=== PATIENT | female | born 1950 | race Caucasian/White ===

== ENCOUNTER 2020-03-03 09:23 | Outpatient (CLI) | payer OTHER, SELFPAY ==
[2020-03-03 09:55] LABS: Hematocrit 37.7 % (35.0-42.0); Hemoglobin 12.3 g/dL (11.7-13.8); Mean Corpuscular HGB Conc 32.6 g/dL (32.0-36.0); Mean Corpuscular Hemoglobin 32.4 pg (27.0-31.0); Mean Corpuscular Volume 99.2 fL (78.0-102.0); Mean Platelet Volume 8.8 fl (9.2-11.8); Platelet Count Result 153 K/mm3 (150-420); Red Cell Distribution Width 13.1 % (11.6-14.4); White Blood Count 3.5 K/mm3 (4.8-10.8)
[2020-03-03 09:56] LABS: Add Urine Microscopic? YES; Appearance Urine Clear (Clear); Bilirubin Urine Negative (Negative); Blood Urine Negative (Negative); Color Urine Yellow (Yellow); Glucose Urine UA Negative (Negative); Ketones Urine Negative (Negative); Leukocyte Esterase Ur Trace (Negative); Nitrate Urine Negative (Negative); Protein Urine Negative (Negative); Specific Grav Ur 1.015 (1.010-1.020); Urobilinogen Urine 0.2 mg/dL (0.2-1.0); pH Urine 5.5 (5.0-8.0)
[2020-03-03 10:00] LABS: RBC Urine 0-2 /hpf (0-2); Squamous Epithelial Cell Urine Rare /hpf (Few); WBC Urine 0-3 /hpf (0-3)
[2020-03-03 10:01] LABS: Bacteria Urine None seen /hpf
[2020-03-03 10:11] LABS: BNP 114 pg/mL (0-100)
[2020-03-03 10:25] LABS: Band Neutrophils Percent 1 % (0-6); Basophils Percent Manual 0 % (0-1); Eosinophils Percent Manual 3 % (1-6); Lymphocytes Absolute Manual 1.82 K/mm3 (1.1-4.5); Lymphocytes Percent Manual 52 % (18-44); Monocytes Absolute Manual 0.35 K/mm3 (0.1-0.90); Monocytes Percent Manual 10 % (3-9); Neutrophils Absolute Manual 1.22 K/mm3 (1.7-7.2); Neutrophils Percent Manual 34 % (46-73); Platelet Estimate Adequate (Adequate); Total Cells Counted 100
[2020-03-03 10:49] LABS: Alanine Aminotransferase 31 U/L (14-59); Albumin Level 3.8 g/dL (3.4-5.0); Alkaline Phosphatase 48 U/L (46-116); Anion Gap 13.3 mmol/L (7-16); Aspartate Amino Transferase 29 U/L (15-37); Bilirubin,Total 0.8 mg/dL (0.00-1.00); Blood Urea Nitrogen 17 mg/dL (7-18); Calcium 8.6 mg/dL (8.5-10.1); Carbon Dioxide 27 mmol/L (21-32); Chloride 105 mmol/L (98-108); Cholesterol 195 mg/dL (0-200); Estimated Glomerular Filt Rate 49; Glucose 110 mg/dL (70-99); HDL Direct 120 mg/dL (40-60); LDL Cholesterol Calculated 59 mg/dL (<130); Osmolality Calculated 294 mOsm/kg (285-295); Potassium 4.3 mmol/L (3.5-5.1); Sodium 141 mmol/L (136-145); Thyroid Stimulating Hormone 1.24 uIU/mL (0.36-3.74); Total Protein 6.7 g/dL (6.4-8.2); Triglycerides 80 mg/dL (0-150)
[2020-03-06 21:00] LABS: Hepatitis C Signal to Cutoff 0.01 ratio (<1.00); Hepatitis C Virus Antibody Nonreactive (Nonreactive)
== END 2020-03-03 09:24 | disposition home or self-care (01) ==
PROVIDERS: PCP Internal Medicine
DX: I42.8 Other cardiomyopathies (principal); E78.5 Hyperlipidemia, unspecified; I25.10 Atherosclerotic heart disease of native coronary artery without angina pectoris; I50.9 Heart failure, unspecified
CPT/HCPCS: 36415; 80053; 80061; 81001; 83880; 84443; 85025

== ENCOUNTER 2021-06-10 07:40 | Outpatient (CLI) | payer OTHER, SELFPAY ==
[2021-06-10 07:58] LABS: Basophils Absolute Auto 0.03 K/mm3 (0.00-0.10); Basophils Percent Auto 0.7 % (0.0-1.0); Eosinophils Percent Auto 2.3 % (1.0-6.0); Hematocrit 37.2 % (35.0-42.0); Hemoglobin 12.1 g/dL (11.7-13.8); Lymphocytes Absolute Auto 2.31 K/mm3 (1.10-4.50); Lymphocytes Percent Auto 54.2 % (18.0-42.0); Mean Corpuscular HGB Conc 32.5 g/dL (32.0-36.0); Mean Corpuscular Hemoglobin 32.9 pg (27.0-31.0); Mean Corpuscular Volume 101.1 fL (78.0-102.0); Mean Platelet Volume 8.5 fl (9.2-11.8); Monocytes Absolute Auto 0.36 K/mm3 (0.10-0.90); Monocytes Percent Auto 8.5 % (2.0-11.0); Neutrophils Absolute Auto 1.5 K/mm3 (1.7-7.2); Neutrophils Percent Auto 34.3 % (50.0-70.0); Platelet Count Result 136 K/mm3 (150-420); Red Blood Count 3.68 M/mm3 (4.20-5.40); Red Cell Distribution Width 13.2 % (11.6-14.4); White Blood Count 4.3 K/mm3 (4.8-10.8)
[2021-06-10 08:06] LABS: Add Urine Microscopic? YES; Appearance Urine Clear (Clear); Bilirubin Urine Negative (Negative); Blood Urine Negative (Negative); Color Urine Light Yellow (Yellow); Glucose Urine UA Negative (Negative); Ketones Urine Negative (Negative); Leukocyte Esterase Ur 1+ (Negative); Nitrate Urine Negative (Negative); Protein Urine Negative (Negative); Specific Grav Ur 1.015 (1.010-1.020); Urobilinogen Urine 0.2 mg/dL (0.2-1.0); pH Urine 5.5 (5.0-8.0)
[2021-06-10 08:36] LABS: Bacteria Urine Trace /hpf; RBC Urine None seen /hpf (0-2); Squamous Epithelial Cell Urine Rare /hpf (Few); WBC Urine 0-3 /hpf (0-3)
[2021-06-10 09:15] LABS: Alanine Aminotransferase 28 U/L (14-59); Alkaline Phosphatase 43 U/L (46-116); Anion Gap 11 mmol/L (8-16); Aspartate Amino Transferase 20 U/L (15-37); Bilirubin,Total 0.7 mg/dL (0.00-1.00); Blood Urea Nitrogen 16 mg/dL (7-18); Carbon Dioxide 27 mmol/L (21-32); Chloride 108 mmol/L (98-108); Cholesterol 183 mg/dL (0-200); Estimated Glomerular Filt Rate > 60; Glucose 97 mg/dL (70-99); HDL Direct 92 mg/dL (40-60); LDL Cholesterol Calculated 72 mg/dL (<130); Osmolality Calculated 303 mOsm/kg (285-295); Potassium 4.1 mmol/L (3.5-5.1); Sodium 146 mmol/L (136-145); Thyroid Stimulating Hormone Reflex 1.21 u/IU/mL (0.36-3.74); Total Protein 6.5 g/dL (6.4-8.2); Triglycerides 97 mg/dL (0-150)
== END 2021-06-10 07:41 | disposition home or self-care (01) ==
PROVIDERS: PCP Internal Medicine
DX: Z00.00 Encounter for general adult medical examination without abnormal findings (principal); I25.10 Atherosclerotic heart disease of native coronary artery without angina pectoris; I25.5 Ischemic cardiomyopathy; R63.5 Abnormal weight gain
CPT/HCPCS: 36415; 80053; 80061; 81001; 84443; 85025

== ENCOUNTER 2022-06-21 08:04 | Outpatient (CLI) | payer OTHER, SELFPAY ==
[2022-06-21 08:28] LABS: Hematocrit 40.1 % (35.0-42.0); Hemoglobin 12.8 g/dL (11.7-13.8); Mean Corpuscular HGB Conc 31.9 g/dL (32.0-36.0); Mean Corpuscular Hemoglobin 31.5 pg (27.0-31.0); Mean Corpuscular Volume 98.8 fL (78.0-102.0); Mean Platelet Volume 8.8 fl (9.2-11.8); Platelet Count Result 214 K/mm3 (150-420); Red Blood Count 4.06 M/mm3 (4.20-5.40); Red Cell Distribution Width 12.9 % (11.6-14.4); White Blood Count 3.5 K/mm3 (4.8-10.8)
[2022-06-21 08:36] LABS: Add Urine Microscopic? YES; Appearance Urine Clear (Clear); Bilirubin Urine Negative (Negative); Blood Urine Negative (Negative); Color Urine Yellow (Yellow); Glucose Urine UA 3+ (Negative); Ketones Urine Negative (Negative); Leukocyte Esterase Ur Negative (Negative); Nitrate Urine Negative (Negative); Protein Urine Negative (Negative); Urobilinogen Urine 0.2 mg/dL (0.2-1.0)
[2022-06-21 08:44] LABS: Bacteria Urine None seen /hpf; RBC Urine None seen /hpf (0-2); Squamous Epithelial Cell Urine Occasional /hpf (Few); WBC Urine None seen /hpf (0-3)
[2022-06-21 08:45] LABS: Band Neutrophils Percent 0 % (0-6); Eosinophils Percent Manual 3 % (1-6); Lymphocytes Absolute Manual 1.85 K/mm3 (1.1-4.5); Lymphocytes Percent Manual 53 % (18-44); Monocytes Percent Manual 3 % (3-9); Neutrophils Absolute Manual 1.43 K/mm3 (1.7-7.2); Neutrophils Percent Manual 41 % (46-73); Platelet Estimate Adequate (Adequate); Schistocytes None Seen (NORMAL); Total Cells Counted 100
[2022-06-21 09:16] LABS: Alanine Aminotransferase 26 U/L (14-59); Albumin Level 3.8 g/dL (3.4-5.0); Alkaline Phosphatase 53 U/L (46-116); Anion Gap 7 mmol/L (8-16); Aspartate Amino Transferase 19 U/L (15-37); Bilirubin,Total 0.8 mg/dL (0.00-1.00); Blood Urea Nitrogen 17 mg/dL (7-18); Calcium 8.9 mg/dL (8.5-10.1); Carbon Dioxide 28 mmol/L (21-32); Chloride 109 mmol/L (98-108); Cholesterol 197 mg/dL (0-200); Estimated Glomerular Filt Rate 57; Glucose 102 mg/dL (70-99); HDL Direct 75 mg/dL (40-60); LDL Cholesterol Calculated 95 mg/dL (<130); NT Pro B Type Natriuretic Pept 453 pg/mL (0-125); Osmolality Calculated 299 mOsm/kg (285-295); Potassium 4.5 mmol/L (3.5-5.1); Sodium 144 mmol/L (136-145); Thyroid Stimulating Hormone 1.77 uIU/mL (0.36-3.74); Total Protein 6.8 g/dL (6.4-8.2); Triglycerides 133 mg/dL (0-150)
== END 2022-06-21 08:05 | disposition home or self-care (01) ==
PROVIDERS: PCP Internal Medicine
DX: D72.820 Lymphocytosis (symptomatic) (principal); I42.9 Cardiomyopathy, unspecified; I25.10 Atherosclerotic heart disease of native coronary artery without angina pectoris; M81.0 Age-related osteoporosis without current pathological fracture
CPT/HCPCS: 36415; 80053; 80061; 81001; 83880; 84443; 85025; 88184; 88185; 88189

== ENCOUNTER 2022-07-17 10:03 | Emergency (ER) | payer OTHER, SELFPAY ==
--- NOTE | 2022-07-17 10:36 | ED.NECK ---
HPI - Neck Pain/Injury General Chief Complaint: Neck Pain/Injury Stated Complaint: stiffness and pain in back of neck and ear right s Time Seen by Provider: 07/17/22 10:36 Source: patient and RN notes reviewed Mode of arrival: ambulatory Limitations: no limitations History of Present Illness HPI Narrative: patient states that she woke up with the stiff neck couple of days ago. She hoped that it would just go when its own. She only has tried some Tylenol aspirin which has not helped. MD complaint: neck pain Onset (ago): day(s) (2) Place: home Severity: moderate Quality: dull, aching and spasming Duration: intermittent Relieving factors: remaining still Exacerbating factors: movement of neck Associated symptoms: none Treatments prior to arrival: none Related Data Home Medications Medication Instructions Recorded Confirmed ascorbic acid (vitamin C) 500 mg 500 mg PO DAILY 07/17/22 07/17/22 tablet (Vitamin C) aspirin 81 mg tablet,delayed 81 mg PO DAILY 07/17/22 07/17/22 release calcium carbonate 600 mg-vitamin 2 tablet PO DAILY 07/17/22 07/17/22 D3 20 mcg (800 unit) chewable tablet (Caltrate 600 plus D) carvedilol 25 mg tablet 25 mg PO BID 07/17/22 07/17/22 clopidogrel 75 mg tablet 75 mg PO DAILY 07/17/22 07/17/22 empagliflozin 10 mg tablet 10 mg PO DAILY 07/17/22 07/17/22 (Jardiance) ferrous sulfate 325 mg (65 mg 325 mg PO DAILY 07/17/22 07/17/22 iron) tablet folic acid-vit B6-vit B12 2.5 1 tablet PO DAILY 07/17/22 07/17/22 mg-25 mg-1 mg tablet (Folbee) omega-3 fatty acids-fish oil 684 2 cap PO BID 07/17/22 07/17/22 mg-1,200 mg capsule,delayed release rosuvastatin 5 mg tablet 5 mg PO HS 07/17/22 07/17/22 sacubitril 97 mg-valsartan 103 mg 1 tablet PO BID 07/17/22 07/17/22 tablet (Entresto) sertraline 50 mg tablet 50 mg PO DAILY 07/17/22 07/17/22 vitamin E 400 unit tablet 400 unit PO DAILY 07/17/22 07/17/22 Allergies Allergy/AdvReac Type Severity Reaction Status Date / Time oxycodone Allergy Hallucinati Verified 07/17/22 10:46 ng Review of Systems Review of Systems: All systems reviewed & are unremarkable except as noted in HPI and below PMFSH Past Medical History Medical History (Updated 07/17/22 @ 11:32 by Feliciano Pedraza MD) Cardiac defibrillator in place Congestive heart failure Coronary artery disease Depression Diabetes type 2, controlled Hyperlipidemia Hypertension Surgical History Surgical History (Updated 07/17/22 @ 11:30 by Feliciano Pedraza MD) H/O heart artery stent H/O right knee surgery History of hip surgery Social History Social History (Updated 07/17/22 @ 11:31 by Feliciano Pedraza MD) Smoking status: Former smoker Exam Const: General: healthy appearing, no acute distress and alert Nutritional Appearance: well nourished Orientation/consciousness: patient oriented x3 Limitations: no limitations HENMT: Head: normal to inspection Ears: external ears normal Eyes: Conjunctivae: conjunctivae normal Pupils: Equal, round and reactive pupils present EOM: EOMs intact bilaterally Neck: Neck: normal visual inspection Resp: Effort & Inspection: normal respiratory effort Auscultation: clear to auscultation bilaterally Cardio: Rate: regular rate Rhythm: regular rhythm GI: GI Palp: Yes Soft to palpation and No Tenderness to palpation present (GI) Auscultation: normal bowel sounds Back/Spine/Pelvis: Cervical Spine: cervical muscular tenderness ( on the right in the area of C3-4 5), pain with cervical ROM ( Flexion to the right, rotation to the right) and No Cervical spine tenderness Thoracic/Lumbar Spine: thoraco-lumbar ROM normal Skin: General skin exam: normal color Rashes: no rashes Neuro: General: patient oriented x3, moves all extremities and CN's II-XI intact bilaterally Speech: normal speech Gait exam (Neuro): Normal gait present Extrem: General: normal to inspection and no clubbing, cyanosis or edema Psych: Mental Status: mental s
[2022-07-17 10:37] VITALS: BP 148/93; PULSE 96; RESP 18; TEMP 36.3; O2SAT 98
[2022-07-17] MEDS: KETOROLAC 30 MG/ML VIAL (*BKC) IM (11:05)
--- NOTE | 2022-07-17 11:14 | PC.NURSE ---
On 07/17/22, the student, [tyson partida ], provided care and completed [facility] documentation on this patient. I have reviewed the student's documentation and agree with the findings.
[2022-07-17 11:26] VITALS: BP 140/78; PULSE 79; RESP 20; TEMP 36.7; O2SAT 99
== END 2022-07-17 11:25 | disposition home or self-care (01) ==
PROVIDERS: Emergency Provider Emergency Medicine; PCP Internal Medicine
DX: S16.1XXA Strain of muscle, fascia and tendon at neck level, initial encounter (principal)
CPT/HCPCS: 96372; 99283; J1885

== ENCOUNTER 2022-10-05 08:33 | Outpatient (CLI) | payer OTHER, SELFPAY ==
--- NOTE | ~2022-10-05 | CT_ITS ---
EXAMINATION: CT chest abdomen pelvis w con DATE: 10/05/2022 10:50 INDICATION: Leukopenia. TECHNIQUE: Computed tomography (CT) of the chest, abdomen, and pelvis was performed with 100 mL Omnip aque 350 intravenous contrast. Automated exposure control and iterative reconstruction technique were employed. The dose-length product was 641.57 mGy-cm. COMPARISON: None FINDINGS: CHEST CT: There is mild atelectasis bilaterally. No pleural effusion. There is left atrial and left ventricular enlargement of the heart. 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 There is a left chest pacer with lead in right ventricle. There are coronary artery calcifications. No pericardial effusion. There is moderate thoracic spondylosis. ABDOMEN/PELVIS CT: There is a 5 mm cyst in the liver. The gallbladder is distended, likely secondary to fasting. The spl een, pancreas, and adrenal glands are normal. There are cysts in the kidneys measuring up to 10.5 cm on the left. There are 2 stones in right kidney with the larger measuring 8 mm. There is a 9 mm stone in left kidney. There is diverticulosis of the colon without evidence of diverticulitis. There are n o dilated loops of bowel. The appendix is normal. There are no pathologically enlarged lymph nodes. T here is no free intraperitoneal fluid. There is a total right hip arthroplasty. There is lumbar levos coliosis and severe spondylosis. IMPRESSION: 1. 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 2. Bilateral nonobstructing kidney stones. Reviewed, dictated and finalized at location A. ION ATTENDANT
[2022-10-05 11:09] LABS: Basophils Absolute Auto 0.04 K/mm3 (0.00-0.10); Basophils Percent Auto 0.6 % (0.0-1.0); Eosinophils Absolute Auto 0.12 K/mm3 (0.02-0.50); Eosinophils Percent Auto 1.8 % (1.0-6.0); Hematocrit 42.3 % (35.0-42.0); Hemoglobin 13.1 g/dL (11.7-13.8); Immature Granulocyte Absolute 0.01 K/mm3 (0.00-0.00); Immature Granulocyte Percent A 0.2 % (0.0-0.0); Lymphocytes Absolute Auto 1.73 K/mm3 (1.10-4.50); Lymphocytes Percent Auto 26.5 % (18.0-42.0); Mean Corpuscular Hemoglobin 30.2 pg (27.0-31.0); Mean Corpuscular Volume 97.5 fL (78.0-102.0); Mean Platelet Volume 9.2 fl (9.2-11.8); Monocytes Absolute Auto 0.66 K/mm3 (0.10-0.90); Monocytes Percent Auto 10.1 % (2.0-11.0); Neutrophils Percent Auto 60.8 % (50.0-70.0); Platelet Count Result 227 K/mm3 (150-420); Red Blood Count 4.34 M/mm3 (4.20-5.40); Red Cell Distribution Width 13.3 % (11.6-14.4); White Blood Count 6.5 K/mm3 (4.8-10.8)
[2022-10-05 11:42] LABS: Estimated Glomerular Filt Rate 54
[2022-10-06 17:12] LABS: Alanine Aminotransferase 33 U/L (14-59); Albumin Level 3.8 g/dL (3.4-5.0); Alkaline Phosphatase 57 U/L (46-116); Anion Gap 9 mmol/L (8-16); Aspartate Amino Transferase 21 U/L (15-37); Bilirubin,Total 0.5 mg/dL (0.00-1.00); Blood Urea Nitrogen 24 mg/dL (7-18); Calcium 8.6 mg/dL (8.5-10.1); Carbon Dioxide 26 mmol/L (21-32); Chloride 108 mmol/L (98-108); Glucose 84 mg/dL (70-99); Osmolality Calculated 299 mOsm/kg (285-295); Potassium 4.3 mmol/L (3.5-5.1); Sodium 143 mmol/L (136-145)
== END 2022-10-05 08:34 | disposition home or self-care (01) ==
LOC: CHSIMG 08:34
PROVIDERS: PCP Internal Medicine; Visit Provider Internal Medicine Hematology & Oncology
DX: D72.820 Lymphocytosis (symptomatic) (principal); I25.2 Old myocardial infarction; N20.0 Calculus of kidney
CPT/HCPCS: 36415; 71260; 74177; 80053; 85025; Q9967

== ENCOUNTER 2023-05-17 08:23 | Outpatient (CLI) | payer OTHER, SELFPAY ==
[2023-05-17 08:48] LABS: Appearance Urine Clear (Clear); Basophils Absolute Auto 0.04 K/mm3 (0.00-0.10); Basophils Percent Auto 0.9 % (0.0-1.0); Bilirubin Urine Negative (Negative); Blood Urine Negative (Negative); Color Urine Light Yellow (Yellow); Eosinophils Absolute Auto 0.09 K/mm3 (0.02-0.50); Eosinophils Percent Auto 2.1 % (1.0-6.0); Glucose Urine UA 2+ (Negative); Hematocrit 44.7 % (35.0-42.0); Hemoglobin 14.1 g/dL (11.7-13.8); Ketones Urine Negative (Negative); Leukocyte Esterase Ur Negative (Negative); Lymphocytes Absolute Auto 1.78 K/mm3 (1.10-4.50); Lymphocytes Percent Auto 42.2 % (18.0-42.0); Mean Corpuscular HGB Conc 31.5 g/dL (32.0-36.0); Mean Corpuscular Hemoglobin 29.9 pg (27.0-31.0); Mean Corpuscular Volume 94.9 fL (78.0-102.0); Mean Platelet Volume 8.9 fl (9.2-11.8); Monocytes Absolute Auto 0.43 K/mm3 (0.10-0.90); Monocytes Percent Auto 10.2 % (2.0-11.0); Neutrophils Absolute Auto 1.9 K/mm3 (1.7-7.2); Neutrophils Percent Auto 44.6 % (50.0-70.0); Nitrate Urine Negative (Negative); Platelet Count Result 253 K/mm3 (150-420); Protein Urine Negative (Negative); Red Blood Count 4.71 M/mm3 (4.20-5.40); Red Cell Distribution Width 13.7 % (11.6-14.4); Urobilinogen Urine 0.2 mg/dL (0.2-1.0); White Blood Count 4.2 K/mm3 (4.8-10.8)
[2023-05-17 08:52] LABS: Add Urine Microscopic? YES; Bacteria Urine Trace /hpf; RBC Urine None seen /hpf (0-2); Squamous Epithelial Cell Urine Moderate /hpf (Few); WBC Urine None seen /hpf (0-3)
[2023-05-17 09:23] LABS: Alanine Aminotransferase 26 U/L (14-59); Albumin Level 3.8 g/dL (3.4-5.0); Alkaline Phosphatase 46 U/L (46-116); Anion Gap 10 mmol/L (8-16); Aspartate Amino Transferase 29 U/L (15-37); Bilirubin,Total 0.8 mg/dL (0.00-1.00); Blood Urea Nitrogen 17 mg/dL (7-18); Calcium 9.5 mg/dL (8.5-10.1); Carbon Dioxide 28 mmol/L (21-32); Chloride 107 mmol/L (98-108); Cholesterol 187 mg/dL (0-200); Estimated Glomerular Filt Rate 57; Glucose 105 mg/dL (70-99); HDL Direct 65 mg/dL (40-60); LDL Cholesterol Calculated 90 mg/dL (<130); NT Pro B Type Natriuretic Pept 317 pg/mL (0-125); Osmolality Calculated 301 mOsm/kg (285-295); Potassium 4.5 mmol/L (3.5-5.1); Sodium 145 mmol/L (136-145); Thyroid Stimulating Hormone 2.28 uIU/mL (0.36-3.74); Total Protein 6.9 g/dL (6.4-8.2); Triglycerides 158 mg/dL (0-150)
== END 2023-05-17 08:24 | disposition home or self-care (01) ==
LOC: CHSLAB 08:30
PROVIDERS: PCP Internal Medicine
DX: I25.5 Ischemic cardiomyopathy (principal); I25.10 Atherosclerotic heart disease of native coronary artery without angina pectoris; M81.0 Age-related osteoporosis without current pathological fracture
CPT/HCPCS: 36415; 80053; 80061; 81001; 83880; 84443; 85025

== ENCOUNTER 2023-08-24 08:42 | Outpatient (CLI) | payer OTHER, SELFPAY ==
[2023-08-24 09:11] LABS: Basophils Absolute Auto 0.03 K/mm3 (0.00-0.10); Basophils Percent Auto 0.7 % (0.0-1.0); Eosinophils Absolute Auto 0.12 K/mm3 (0.02-0.50); Eosinophils Percent Auto 2.9 % (1.0-6.0); Hematocrit 41.7 % (35.0-42.0); Hemoglobin 13.2 g/dL (11.7-13.8); Immature Granulocyte Absolute 0.01 K/mm3 (0.00-0.00); Immature Granulocyte Percent A 0.2 % (0.0-0.0); Lymphocytes Absolute Auto 1.79 K/mm3 (1.10-4.50); Mean Corpuscular HGB Conc 31.7 g/dL (32.0-36.0); Mean Corpuscular Hemoglobin 30.4 pg (27.0-31.0); Mean Corpuscular Volume 96.1 fL (78.0-102.0); Mean Platelet Volume 9.1 fl (9.2-11.8); Monocytes Absolute Auto 0.43 K/mm3 (0.10-0.90); Monocytes Percent Auto 10.6 % (2.0-11.0); Neutrophils Absolute Auto 1.7 K/mm3 (1.7-7.2); Neutrophils Percent Auto 41.6 % (50.0-70.0); Platelet Count Result 212 K/mm3 (150-420); Red Blood Count 4.34 M/mm3 (4.20-5.40); White Blood Count 4.1 K/mm3 (4.8-10.8)
[2023-08-24 10:06] LABS: Alanine Aminotransferase 40 U/L (14-59); Albumin Level 3.7 g/dL (3.4-5.0); Alkaline Phosphatase 37 U/L (46-116); Anion Gap 7 mmol/L (8-16); Aspartate Amino Transferase 30 U/L (15-37); Bilirubin Direct 0.1 mg/dL (0-0.2); Bilirubin,Total 0.7 mg/dL (0.00-1.00); Blood Urea Nitrogen 14 mg/dL (7-18); Calcium 9.1 mg/dL (8.5-10.1); Carbon Dioxide 29 mmol/L (21-32); Chloride 106 mmol/L (98-108); Cholesterol 174 mg/dL (0-200); Estimated Glomerular Filt Rate 55; Glucose 101 mg/dL (70-99); HDL Direct 78 mg/dL (40-60); LDL Cholesterol Calculated 72 mg/dL (<130); NT Pro B Type Natriuretic Pept 356 pg/mL (0-125); Osmolality Calculated 294 mOsm/kg (285-295); Potassium 4.3 mmol/L (3.5-5.1); Sodium 142 mmol/L (136-145); Total Protein 6.7 g/dL (6.4-8.2); Triglycerides 121 mg/dL (0-150)
== END 2023-08-24 08:43 | disposition home or self-care (01) ==
PROVIDERS: PCP Internal Medicine
DX: I25.10 Atherosclerotic heart disease of native coronary artery without angina pectoris (principal); I50.9 Heart failure, unspecified; D72.819 Decreased white blood cell count, unspecified
CPT/HCPCS: 36415; 80053; 80061; 82248; 83880; 85025

== ENCOUNTER 2024-02-26 08:34 | Outpatient (CLI) | payer OTHER, SELFPAY ==
--- NOTE | ~2024-02-26 | XR_ITS ---
EXAMINATION: XR chest 2V DATE: 02/26/2024 09:16 INDICATION: Infarct of left ventricle of the heart. Preop. TECHNIQUE: Frontal and lateral views of the chest were obtained. COMPARISON: Chest single view 04/16/2008 FINDINGS: There is mild atelectasis in right lower lung zone. No pleural effusion or pneumothorax. Th e heart size is normal. There is a left chest pacer/defibrillator with lead in right ventricle. IMPRESSION: 1. Mild atelectasis in right lower lung zone. Reviewed, dictated and finalized at location A.
[2024-02-26 09:01] LABS: Basophils Absolute Auto 0.03 K/mm3 (0.00-0.10); Basophils Percent Auto 0.7 % (0.0-1.0); Eosinophils Absolute Auto 0.14 K/mm3 (0.02-0.50); Eosinophils Percent Auto 3.3 % (1.0-6.0); Hematocrit 42.5 % (35.0-42.0); Hemoglobin 13.3 g/dL (11.7-13.8); Immature Granulocyte Absolute 0.01 K/mm3 (0.00-0.00); Immature Granulocyte Percent A 0.2 % (0.0-0.0); Lymphocytes Percent Auto 49.9 % (18.0-42.0); Mean Corpuscular HGB Conc 31.3 g/dL (32-36); Mean Corpuscular Hemoglobin 29.3 pg (27.0-31.0); Mean Corpuscular Volume 93.6 fL (78.0-102.0); Mean Platelet Volume 8.6 fl (9.2-11.8); Monocytes Absolute Auto 0.39 K/mm3 (0.10-0.90); Monocytes Percent Auto 9.3 % (2.0-11.0); Neutrophils Absolute Auto 1.54 K/mm3 (1.70-7.20); Neutrophils Percent Auto 36.6 % (50.0-70.0); Platelet Count Result 187 K/mm3 (150-420); Red Blood Count 4.54 M/mm3 (4.20-5.40); Red Cell Distribution Width 14.5 % (11.6-14.4); White Blood Count 4.2 K/mm3 (4.8-10.8)
[2024-02-26 09:10] LABS: Hemoglobin A1C 5.7 % (<5.7)
--- NOTE | 2024-02-26 09:24 | ECG_ITS ---
Test Date: 2024-02-26 09:33:49 Measurements Intervals [place] Rate: 65 P: 78 NC: 176 QRS: 59 QRSD: 99 T: 94 QT: 392 QTc: 409 Interpretive Statements SINUS RHYTHM WITH OCCASIONAL VENTRICULAR PREMATURE COMPLEXES ANTEROSEPTAL MYOCARDIAL INFARCTION , OLD No previous ECG available for comparison Electronically Signed On 02-27-2024 13:20:23 CDT by Jolie Belle M.D.
[2024-02-26 09:28] LABS: Alanine Aminotransferase 32 U/L (14-59); Albumin Level 3.8 g/dL (3.4-5.0); Alkaline Phosphatase 32 U/L (46-116); Anion Gap 10 mmol/L (4-12); Aspartate Amino Transferase 22 U/L (15-37); Bilirubin Direct 0.2 mg/dL (0-0.2); Bilirubin,Total 0.9 mg/dL (0.00-1.00); Blood Urea Nitrogen 18 mg/dL (7-18); Calcium 8.8 mg/dL (8.5-10.1); Carbon Dioxide 27 mmol/L (21-32); Chloride 107 mmol/L (98-108); Estimated Glomerular Filt Rate 58; Glucose 91 mg/dL (70-99); Osmolality Calculated 299 mOsm/kg (285-295); Sodium 144 mmol/L (136-145); Total Protein 6.7 g/dL (6.4-8.2)
[2024-02-26 10:13] LABS: Appearance Urine Clear (Clear); Bilirubin Urine Negative (Negative); Blood Urine Negative (Negative); Color Urine Yellow (Yellow); Glucose Urine UA 3+ (Negative); Ketones Urine Negative (Negative); Leukocyte Esterase Ur Negative (Negative); Nitrate Urine Negative (Negative); Protein Urine Negative (Negative); Specific Grav Ur 1.015 (1.010-1.020); Urobilinogen Urine 0.2 mg/dL (0.2-1.0); pH Urine 5.5 (5.0-8.0)
[2024-02-26 10:17] LABS: Add Urine Microscopic? YES; Bacteria Urine Rare /hpf; RBC Urine 0-2 /hpf (0-2); Squamous Epithelial Cell Urine Few /hpf (Few); WBC Urine None seen /hpf (0-3)
== END 2024-02-26 08:35 | disposition home or self-care (01) ==
PROVIDERS: PCP Internal Medicine
DX: Z01.818 Encounter for other preprocedural examination (principal); I25.10 Atherosclerotic heart disease of native coronary artery without angina pectoris; D72.819 Decreased white blood cell count, unspecified; J98.11 Atelectasis; R94.31 Abnormal electrocardiogram [ECG] [EKG]
CPT/HCPCS: 36415; 71046; 80053; 81001; 82248; 83036; 85025; 87086; 93005

== ENCOUNTER 2024-03-19 12:37 | Outpatient (CLI) | payer OTHER, SELFPAY ==
[2024-03-19 13:37] LABS: Anion Gap 14 mmol/L (4-12); Blood Urea Nitrogen 41 mg/dL (7-18); Calcium 8.9 mg/dL (8.5-10.1); Carbon Dioxide 21 mmol/L (21-32); Chloride 106 mmol/L (98-108); Estimated Glomerular Filt Rate 40; Glucose 101 mg/dL (70-99); Osmolality Calculated 302 mOsm/kg (285-295); Potassium 4.4 mmol/L (3.5-5.1); Sodium 141 mmol/L (136-145)
== END 2024-03-19 12:38 | disposition home or self-care (01) ==
PROVIDERS: PCP Internal Medicine; Visit Provider Orthopaedic Surgery
DX: I95.2 Hypotension due to drugs (principal)
CPT/HCPCS: 36415; 80048

== ENCOUNTER 2024-03-21 09:50 | Outpatient (RCR) | payer OTHER, SELFPAY ==
--- NOTE | 2024-03-21 11:14 | PCPTNOTE ---
spoke with Dr. Sutton's office concerning patients swelling. took her down to ER here at [facility] to have Danisha HOUGH evaluated for DVT.
--- NOTE | 2024-03-21 11:17 | OPREHPOC ---
Outpatient Therapy Plan of Care This is a Multidisciplinary Plan of Care that may contain components documented by all disciplines (PT, OT, and ST.) PT Problem 1 PT Problem #1 Knowledge Deficit PT Goal 1 Goal 1. independent and compliant with HEP Target Visit 6 PT Problem 2 PT Problem #2 Pain PT Goal 1 Goal 1. patient to report no pain in the L knee with routine daily activities (walking, stairs, rom of the L knee) Target Visit 12 PT Problem 3 PT Problem #3 Impaired Range of Motion PT Goal 1 Goal 1. 0-120 degrees active L knee rom Target Visit 12 PT Problem 4 PT Problem #4 Impaired Strength PT Goal 1 Goal 1. 4+/5 or better L hip flex 2. 5/5 L knee strength 3. 5/5 L ankle DF Target Visit 12 PT Problem 5 PT Problem #5 Impaired Functional Mobil PT Goal 1 Goal 1. 3cm or less increased girth of the L knee jt line compared to the R knee. 2. LEFS to display 30% or less functional deficits 3. patient to ambulate with normal gait mechanics on level surface without an AD 4. patient to ambulate up and down steps reciprocally 5. patient to complete 6 minute walk test for 800ft or more without rest
--- NOTE | 2024-03-21 11:17 | PTOPEVAL1 ---
Assessment and note entered by JT File, PT Evaluation Information Assessment Status Evaluation Diagnosis L TKA ICD-10 Condition Codes (PT) Z47.1 Other ICD-10 Condition Codes ( Z96.652 PT) Onset 03/15/24 Subjective Information patient had a L TKA on 03/15/24. she reports since surgery she has been home, but has had family living with her. she reports since surgery, her pain has waxed and waned. she reports at times she is pain free, but other times she is moderately sore and struggles to stand. she reports she has a follow up with Dr. Sutton next month. she reports she would like to get back to walking without an AD. she reports she would like to improve her ability to ambulate up and down steps as she had trouble with this prior to surgery. patient reports she is on Plavix. she reports she had to stop prior to surgery, but has started back on it since surgery. she does reports since surgery she has been elevating the L LE, but not above the heart, and has not been consistent with her post op exercises. she also reports she has not been wearing L LE compression stockings due to her bandages on the L knee. Reported Pain Level Pain Score 3: Self Report Assessment PT Clinical Summary mrs. garcia is a 74 yo woman who presents to skilled PT services for evaluation and treatment s /p L TKA. she presents today with altered gait mechanics, decreased rom, weakness, and swelling in the L LE typical of a patient recently s/p L TKA. she would benefit from continued skilled PT to address her objective/functional deficits and return to prior level functional activity performance/quality of life without pain in the L knee. Plan of Care Interventions Electrical Stimulation,Gait Training,Hot Pack/Cold Pack,Intermittent Compression,Manual Therapy, Neuro Re-education,Patient/Caregiver Educati, Therapeutic Activities,Therapeutic Exercise PT Services Indicated Yes Treatment Frequency and 3x weekly for 12 visits Duration These treatments will address the objective and functional deficits as defined above. The patient will be advanced safely and appropriately in order for the patient to progress towards his/her prior level of function. Additional exercises will be introduced and as well as a comprehensive home exercise program upon discharge, if needed, ?to ensure carryover of functional gains achi
--- NOTE | 2024-04-01 17:13 | PCPTNOTE ---
I reviewed the License Pending Therapist's documentation and agree with the findings.
--- NOTE | 2024-04-01 17:14 | PCPTNOTE ---
I reviewed the License Pending Therapist's documentation and agree with the findings for 03/25/24 note
--- NOTE | 2024-04-08 17:52 | PCPTNOTE ---
I reviewed the License Pending Therapist's documentation and agree with the findings.
--- NOTE | 2024-04-15 10:39 | PTOPPROG ---
Assessment and note entered by [facility] Evaluation Information Assessment Status Progress Diagnosis L TKA ICD-10 Condition Codes (PT) Z47.1 Other ICD-10 Condition Codes ( Z96.652 PT) Onset 03/15/24 Subjective Information Pt. reports she is doing much better. She is strictly using the cane and has not used her walker for a week. She has been walking short distance without an AD. She reports pain is minimal and describes a general soreness. She reports that her goal remains to walk without an AD. Assessment PT Clinical Summary Pt. has attended a total of 10 treatment sessions. She demonstrates excellent progress in regards to ROM judaism and edema reduction. Pt. biggest limitations are in regards to gait and l.e . strength. We will continue with POC transitioning focus primarily to improved weight distribution to the left l.e. to help normalize gait. Plan of Care Interventions Electrical Stimulation,Gait Training,Hot Pack/Cold Pack,Manual Therapy,Neuro Re-education,Patient/ Caregiver Educati,Therapeutic Activities, Therapeutic Exercise PT Services Indicated Yes Treatment Frequency and Continue with POC focusing on improve left l.e. Duration weight distribution during gait and continued strength improvements. Discontinue vasopneumatic compression due to notable edema reduction. These treatments will address the objective and functional deficits as defined above. The patient will be advanced safely and appropriately in order for the patient to progress towards his/her prior level of function. Additional exercises will be introduced and as well as a comprehensive home exercise program upon discharge, if needed, ?to ensure carryover of functional gains achieved in the clinic. This treatment plan has been reviewed and agreement upon by the patient.
--- NOTE | 2024-04-19 10:49 | OPREHPOC ---
Outpatient Therapy Plan of Care This is a Multidisciplinary Plan of Care that may contain components documented by all disciplines (PT, OT, and ST.) PT Problem 1 PT Problem #1 Knowledge Deficit PT Goal 1 Goal 1. independent and compliant with HEP Target Visit 6 Progress Met PT Problem 2 PT Problem #2 Pain PT Goal 1 Goal 1. patient to report no pain in the L knee with routine daily activities (walking, stairs, rom of the L knee) Target Visit 12 Progress Met PT Problem 3 PT Problem #3 Impaired Range of Motion PT Goal 1 Goal 1. 0-120 degrees active L knee rom Target Visit 12 Progress Met PT Problem 4 PT Problem #4 Impaired Strength PT Goal 1 Goal 1. 4+/5 or better L hip flex. met 2. 5/5 L knee strength. met 3. 5/5 L ankle DF. met Target Visit 12 Progress Met PT Goal 2 Goal 1. patient to improve L hip abduction strength to 4/5 or better Target Visit 18 PT Problem 5 PT Problem #5 Impaired Functional Mobil PT Goal 1 Goal 1. 3cm or less increased girth of the L knee jt line compared to the R knee. 2. LEFS to display 30% or less functional deficits . not met 3. patient to ambulate with normal gait mechanics on level surface without an AD. not met 4. patient to ambulate up and down steps reciprocally. partially met 5. patient to complete 6 minute walk test for 800ft or more without rest. not met Target Visit 18 Progress Partially Met
--- NOTE | 2024-04-19 10:49 | PTOPREEVAL ---
Assessment and note entered by JT File, PT Evaluation Information Assessment Status Re-evaluation Diagnosis L TKA ICD-10 Condition Codes (PT) Z47.1 Other ICD-10 Condition Codes ( Z96.652 PT) Onset 03/15/24 Subjective Information patient reports she has no pain today. she reports the knee is much better. however, she reports she is still unable to walk without a cane due to her balance. she reports she does not follow up with the surgeon again for a while. she reports she would like to be able to return to walking without a cane or AD. Reported Pain Level Pain Score 0: Self Report Assessment PT Clinical Summary mrs. garcia presents to skilled PT services for her 12th skilled therapy visit today. she has made significant progress towards goals in skilled PT having achieved hep, rom, pain goals. she met initial strength goals, but lacks adequate L hip abduction strength for normal gait mechanics without an AD. she also has yet to meet LEFS goal and other functional goals. she would benefit from continued skilled PT to address her remaining objective/functional goals to return to normal functional activity performance and quality of life. Plan of Care Interventions Gait Training,Neuro Re-education,Patient/Caregiver Educati,Therapeutic Activities,Therapeutic Exercise PT Services Indicated Yes Treatment Frequency and continue skilled PT 2x weekly for 6 more visits Duration These treatments will address the objective and functional deficits as defined above. The patient will be advanced safely and appropriately in order for the patient to progress towards his/her prior level of function. Additional exercises will be introduced and as well as a comprehensive home exercise program upon discharge, if needed, ?to ensure carryover of functional gains achieved in the clinic. This treatment plan has been reviewed and agreement upon by the patient.
--- NOTE | 2024-05-10 11:02 | OPREHPOC ---
Outpatient Therapy Plan of Care This is a Multidisciplinary Plan of Care that may contain components documented by all disciplines (PT, OT, and ST.) PT Problem 1 PT Problem #1 Knowledge Deficit PT Goal 1 Goal / Goal Update 1. independent and compliant with HEP Target Visit 6 Progress Met PT Problem 2 PT Problem #2 Pain PT Goal 1 Goal / Goal Update 1. patient to report no pain in the L knee with routine daily activities (walking, stairs, rom of the L knee) Target Visit 12 Progress Met PT Problem 3 PT Problem #3 Impaired Range of Motion PT Goal 1 Goal / Goal Update 1. 0-120 degrees active L knee rom Target Visit 12 Progress Met PT Problem 4 PT Problem #4 Impaired Strength PT Goal 1 Goal / Goal Update 1. 4+/5 or better L hip flex. met 2. 5/5 L knee strength. met 3. 5/5 L ankle DF. met Target Visit 12 Progress Met PT Goal 2 Goal / Goal Update 1. patient to improve L hip abduction strength to 4/5 or better Target Visit 18 Progress Not Met PT Problem 5 PT Problem #5 Impaired Functional Mobil PT Goal 1 Goal / Goal Update 1. 3cm or less increased girth of the L knee jt line compared to the R knee. 2. LEFS to display 30% or less functional deficits . not met 3. patient to ambulate with normal gait mechanics on level surface without an AD. not met 4. patient to ambulate up and down steps reciprocally. partially met 5. patient to complete 6 minute walk test for 800ft or more without rest. met for time, not for distance Target Visit 18 Progress Partially Met
--- NOTE | 2024-05-10 11:02 | PTOPDC ---
Assessment and note entered by JT File, PT Evaluation Information Assessment Status Discharge Diagnosis L TKA ICD-10 Condition Codes (PT) Z47.1 Other ICD-10 Condition Codes ( Z96.652 PT) Onset 03/15/24 Subjective Information patient reports she feels good today. she reports she has felt no more than slight tightness in the L knee the past 2-3 weeks. she reports she is ready to DC today. she reports she is compliant with her HEP, and is wanting to progress her walking program at home. Reported Pain Level Pain Score 0: Self Report Assessment PT Clinical Summary mrs. garcia presents to skilled PT services for her 18th skilled PT visit. she presents today with no pain in the L knee, and no pain in the last few weeks. she has achieved full L knee active rom , and met goals for L knee strength and L hip flexor strength. she continues to lack achievement of gait speed goals and L hip abduction strength goals. however, at this time, she is appropriate for DC to independent HEP. Plan of Care PT Services Indicated Yes
== END 2024-05-10 13:32 | disposition home or self-care (01) ==
LOC: CHSPT 09:50
PROVIDERS: Visit Provider Orthopaedic Surgery
DX: Z96.652 Presence of left artificial knee joint (principal); Z47.1 Aftercare following joint replacement surgery
CPT/HCPCS: 97016; 97110; 97112; 97116; 97150; 97161; 97530

== ENCOUNTER 2024-03-21 11:08 | Emergency (ER) | payer OTHER, SELFPAY ==
--- NOTE | ~2024-03-21 | US_ITS ---
EXAMINATION:US venous doppler LE LT INDICATION:Left knee surgery recently. Leg edema. TECHNIQUE: Multiple grayscale, color flow and Doppler images of the left lower extremity deep venous systems were obtained and reviewed. COMPARISON:No prior studies for comparison. FINDINGS: The common femoral, superficial femoral and popliteal veins demonstrate normal respiratory variation, augmentation and compressibility. Color flow is also seen within the posterior tibial, pe roneal, greater saphenous and profunda veins. IMPRESSION: 1: No lower extremity deep venous thrombosis. Reviewed, dictated and finalized at location B.
[2024-03-21 11:08] VITALS: BP 108/90; PULSE 70; RESP 16; TEMP 36.4; O2SAT 92
--- NOTE | 2024-03-21 11:48 | ED.GENADULT ---
HPI - General Adult General Chief complaint: Extremity Injury, Lower Stated complaint: LL swelling History of Present Illness HPI narrative: 74-year-old white female with history of right hip replacement, previous right knee replacement, and 1 week ago had her left knee replaced at [facility]. She reports she has had previous MIs, multiple stents, has been on Plavix, history of ejection fraction as low as 10-15%, which improved according to her to about 30-35% once she had her last 2 stents. She has had an AICD placed.. About 3 months ago she developed some swelling in the left leg, more so than the right leg. Was seen by her drafter detail to had not seemed to be that concerned about it, had been noted by her orthopedist to had not seemed to concerned about it, however since the surgery it has become significantly more swollen in the last few days. She was referred in by her orthopedic office to the emergency department for us to evaluate her for possible DVT. She denies chest pain, shortness a breath, orthopnea. She has diabetes and hypertension as other comorbidities denies any fever, chills, abdominal pain, nausea vomiting, diarrhea or constipation, dysuria urgency or frequency Related Data Home Medications Medication Instructions Recorded Confirmed ascorbic acid (vitamin C) 500 mg 500 mg PO DAILY 07/17/22 07/17/22 tablet (Vitamin C) aspirin 81 mg tablet,delayed 81 mg PO DAILY 07/17/22 07/17/22 release calcium carbonate 600 mg-vitamin 2 tablet PO DAILY 07/17/22 07/17/22 D3 20 mcg (800 unit) chewable tablet (Caltrate 600 plus D) carvedilol 25 mg tablet 25 mg PO BID 07/17/22 07/17/22 clopidogrel 75 mg tablet 75 mg PO DAILY 07/17/22 07/17/22 empagliflozin 10 mg tablet 10 mg PO DAILY 07/17/22 07/17/22 (Jardiance) ferrous sulfate 325 mg (65 mg 325 mg PO DAILY 07/17/22 07/17/22 iron) tablet folic acid-vit B6-vit B12 2.5 1 tablet PO DAILY 07/17/22 07/17/22 mg-25 mg-1 mg tablet (Folbee) omega-3 fatty acids-fish oil 684 2 cap PO BID 07/17/22 07/17/22 mg-1,200 mg capsule,delayed release rosuvastatin 5 mg tablet 5 mg PO HS 07/17/22 07/17/22 sacubitril 97 mg-valsartan 103 mg 1 tablet PO BID 07/17/22 07/17/22 tablet (Entresto) sertraline 50 mg tablet 50 mg PO DAILY 07/17/22 07/17/22 vitamin E 400 unit tablet 400 unit PO DAILY 07/17/22 07/17/22 Allergies Allergy/AdvReac Type Severity Reaction Status Date / Time oxycodone Allergy Hallucinati Verified 03/21/24 11:43 ng Review of Systems Review of Systems: All systems reviewed & are unremarkable except as noted in HPI and below PMFSH Past Medical History Medical History Cardiac defibrillator in place Congestive heart failure Coronary artery disease Depression Diabetes type 2, controlled Hyperlipidemia Hypertension Surgical History Surgical History H/O heart artery stent H/O right knee surgery History of hip surgery Social History Social History Smoking status: Former smoker Exam Narrative: Awake, alert, pleasant, articulate historian, well oriented, looks younger than her stated age, has markedly swollen left leg including thigh knee calf ankle and foot, with diffuse ecchymosis which she reports is new since her surgery. Distal neurovascular is intact, capillary blood flow is intact, pulses are palpable posterior tibial and dorsalis pedal. Her knee wound has the original bandage in place, no blood soaking through the bandage, no erythema. Const: General: healthy appearing, no acute distress, alert and well nourished Nutritional Appearance: well nourished Orientation/consciousness: patient oriented x3 Limitations: no limitations HENMT: Head: normal to inspection Ears: external ears normal Face/Nose/Sinus: Normal external nose present and normal fac
[2024-03-21 13:00] VITALS: BP 112/61; PULSE 85; RESP 16; TEMP 36.7; O2SAT 100
== END 2024-03-21 13:00 | disposition home or self-care (01) ==
PROVIDERS: Emergency Provider Emergency Medicine; PCP Internal Medicine
DX: M79.89 Other specified soft tissue disorders (principal); E78.5 Hyperlipidemia, unspecified; I12.9 Hypertensive chronic kidney disease with stage 1 through stage 4 chronic kidney disease, or unspecified chronic kidney disease; I50.9 Heart failure, unspecified; I25.10 Atherosclerotic heart disease of native coronary artery without angina pectoris; Z87.891 Personal history of nicotine dependence; Z96.641 Presence of right artificial hip joint; Z96.653 Presence of artificial knee joint, bilateral
CPT/HCPCS: 93971; 99284

== ENCOUNTER 2024-08-29 09:49 | Outpatient (CLI) | payer OTHER, SELFPAY ==
[2024-08-29 10:12] LABS: Hematocrit 38.8 % (35.0-42.0); Hemoglobin 12.3 g/dL (11.7-13.8); Mean Corpuscular HGB Conc 31.7 g/dL (32-36); Mean Corpuscular Hemoglobin 29.4 pg (27.0-31.0); Mean Corpuscular Volume 92.8 fL (78.0-102.0); Mean Platelet Volume 8.9 fl (9.2-11.8); Platelet Count Result 235 K/mm3 (150-420); Red Blood Count 4.18 M/mm3 (4.20-5.40); Red Cell Distribution Width 14.9 % (11.6-14.4); White Blood Count 3.9 K/mm3 (4.8-10.8)
[2024-08-29 10:54] LABS: Band Neutrophils Percent 0 % (0-6); Eosinophils Absolute Manual 0.11 K/mm3 (0.02-0.50); Eosinophils Percent Manual 3 % (1-6); Lymphocytes Absolute Manual 1.75 K/mm3 (1.1-4.5); Lymphocytes Percent Manual 45 % (18-44); Monocytes Absolute Manual 0.23 K/mm3 (0.1-0.90); Monocytes Percent Manual 6 % (3-9); Neutrophils Absolute Manual 1.79 K/mm3 (1.7-7.2); Neutrophils Percent Manual 46 % (46-73); Platelet Estimate Adequate (Adequate); Total Cells Counted 100
[2024-08-29 11:08] LABS: Alanine Aminotransferase 31 U/L (14-59); Albumin Level 3.7 g/dL (3.4-5.0); Alkaline Phosphatase 48 U/L (46-116); Anion Gap 11 mmol/L (4-12); Aspartate Amino Transferase 26 U/L (15-37); Bilirubin Direct 0.1 mg/dL (0-0.2); Bilirubin,Total 0.6 mg/dL (0.00-1.00); Blood Urea Nitrogen 24 mg/dL (7-18); Calcium 8.9 mg/dL (8.5-10.1); Carbon Dioxide 27 mmol/L (21-32); Chloride 108 mmol/L (98-108); Cholesterol 164 mg/dL (0-200); Estimated Glomerular Filt Rate 50; Glucose 89 mg/dL (70-99); HDL Direct 71 mg/dL (40-60); LDL Cholesterol Calculated 75 mg/dL (<130); Osmolality Calculated 305 mOsm/kg (285-295); Potassium 4.8 mmol/L (3.5-5.1); Sodium 146 mmol/L (136-145); Total Protein 6.3 g/dL (6.4-8.2); Triglycerides 90 mg/dL (0-150)
== END 2024-08-29 09:50 | disposition home or self-care (01) ==
LOC: CHSLAB 09:52
PROVIDERS: PCP Internal Medicine
DX: I25.10 Atherosclerotic heart disease of native coronary artery without angina pectoris (principal)
CPT/HCPCS: 36415; 80048; 80061; 80076; 85025

== ENCOUNTER 2025-03-20 09:09 | Outpatient (CLI) | payer OTHER, SELFPAY ==
--- OUTSIDE RECORDS SUMMARY | 2025-03-20 09:18 | XMS_ITS | Encounter Summary ---
Author Organization [facility] Address [address] [place] [address] Phone Care Team Providers Care Yarn Mercerizer Operator Helper Name Role Phone Kamille Claudio MD Primary Care Provider [phone] Ismael Chamberlain MD Primary Care Provider [phone] Esau Sutton MD Unavailable [phone] Encounter Details Date Type Department Care Team (Late st Contact Info) Description 04/13/2016 Orders Only [facility]IN[facility] ProviderLinnea MD [address] [place] [id number] Social History Tobacco Use Types Packs/Day Years Used Date Smoking Tobacco: Former Alcohol Use Standard Drinks/Week Comments Yes 0 (1 standard drink = 0.6 oz pur e alcohol) Comments Unknown Sex and Gender Information Value Date Recorded Sex Assigned at Not on file Legal Sex Female 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 us Historical Provider [facility] CARDIAC SERVICES PROCE DURES Final Result * CARDIOLOGY REPORT (04/13/2016) Anatomical Region Laterality Modality Other Narrative 04/13/2016 Ordered by an unspecified provider. us Historical Provider [facility] CARDIAC SERVICES PROCE DURES Final Result documented in this encounter Visit Diagnoses Not on filedocumented in this encounter Additional Health Concerns Infection Onset Date Last Indicated Resolved Time COVID: Suspected 11/01/2024 11/01/2024 11/01/2024 7:01 PM PLANT OPERATIONS VICE PRESIDENT documented as of this encounter Care Teams Yarn Mercerizer Operator Helper Relationship Specialty Start Date End Date Kamille Claudio MD [address] [place] [address] PCP - General 01/10/17 06/03/20 Ismael Chamberlani MD [address] [place] [address] PCP - General Internal Medicine 06/04/20 Esau Sutton MD [address], [place] [address] Surgeon Orthopedic Surgery 03/15/24 documented as of this encounter
--- OUTSIDE RECORDS SUMMARY | 2025-03-20 09:18 | XMS_ITS | Encounter Summary ---
Author Organization [facility] Address [address] [place] [address] Phone Care Team Providers Care Technical Developer Name Role Phone Kamille Claudio MD Primary Care Provider [phone] Ismael Chamberlain MD Primary Care Provider [phone] Esau Sutton MD Unavailable [phone] Encounter Details Date Type Department Care Team (Late st Contact Info) Description 01/11/2017 Orders Only [facility]IN[facility] ProviderLinnea MD [address] [place] [address] Social History Tobacco Use Types Packs/Day Years Used Date Smoking Tobacco: Former Alcohol Use Standard Drinks/Week Comments Yes 0 (1 standard drink = 0.6 oz pur e alcohol) Comments Unknown Sex and Gender Information Value Date Recorded Sex Assigned at Not on file 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 us Historical Provider [facility] CARDIAC SERVICES PROCE DURES Final Result * CARDIOLOGY REPORT (01/11/2017) Anatomical Region Laterality Modality Other Narrative 01/11/2017 Ordered by an unspecified provider. us Historical Provider CV CARDIAC SERVICES PROCE DURES Final Result documented in this encounter Visit Diagnoses Not on filedocumented in this encounter Additional Health Concerns Infection Onset Date Last Indicated Resolved Time COVID: Suspected 11/01/2024 11/01/2024 11/01/2024 7:01 PM COMIC BOOK ARTIST documented as of this encounter Care Teams Technical Developer Relationship Specialty Start Date End Date Kamille Claudio MD [address] [place] [address] PCP - General 01/10/17 06/03/20 Ismael Chamberlain MD [address] [place] [address] PCP - General Internal Medicine 06/04/20 Esau Sutton MD [address] [address] Surgeon Orthopedic Surgery 03/15/24 documented as of this encounter
--- OUTSIDE RECORDS SUMMARY | 2025-03-20 09:18 | XMS_ITS | Encounter Summary ---
Author Organization [facility] Address [address] [place] [address] Care Team Providers Care Business Relations Manager Name Role Phone Ismael Chamberlain MD Primary Care Provider [phone] Esau Sutton MD Unavailable [phone] Encounter Details Date Type Department Care Team (Late st Contact Info) Description 03/29/2024 Telephone [facility] Orthopedics and [facility] Medicine [address] [place] [address] Cherrie Hernandez PA [address] [place] [address] [address] [place] [address] Social History Tobacco Use Types Packs/Day Years Used Date Smoking Tobacco: Former Cigarettes Smokeless Tobacco: Never Alcohol Use Standard Drinks/Week Comments Yes 0 (1 standard drink = 0.6 oz pur e alcohol) AUDIT-C Answer Date Recorded Q1: How often do you have a drink containing alc ohol? Monthly or less 03/15/2024 Q2: How many drinks containi ng alcohol do you have on a typical day when you are drinking? 1 or 2 03/15/2024 Frequency of Binge Drinking Not on file 03/04 PHQ-2 Answer Date Recorded PHQ-2 Total Score (If total score is 3 or more points, staff should administer the PHQ-9) 2 03/15/2024 Personal Safety Answer Date Recorded Have you ever been in or are you currently in a harmful physical or emotional relationship or is someone making you feel afraid or unsafe? 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 Gender Identity Female 02/22/2023 3:53 PM CDT Sexual Orientation Straight 07/08/2021 9: 32 AM CDT documented as of this encounter Ordered Prescriptions Prescription Sig Dispense Quantity Refills Last Filled Start Date End Date traMADoL (ULTRAM) 50 mg tablet Take 1 tablet (50 mg total) by mouth every 6 (six) hours as needed for pain 30 tablet 03/29/2024 05/09/2024 documented in this encounter Plan of Treatment Not on file documented as of this encounter Visit Diagnoses Not on filedocumented in this encounter Additional Health Concerns Infection Onset Date Last Indicated Resolved Time COVID: Suspected 11/01/2024 11/01/2024 11/01/2024 7:01 PM CELLOPHANE BATH MIXER documented as of this encounter Care Teams Business Relations Manager Relationship Specialty Start Date End Date Ismael Chamberlain MD PCP - General Internal Medicine 06/04/20 Esau Sutton MD [address] [place] [address] Surgeon Orthopedic Surgery 03/15/24 documented as of this encounter
--- OUTSIDE RECORDS SUMMARY | 2025-03-20 09:18 | XMS_ITS | Clinical Summary ---
Author Organization [facility] Address [address] [place] [address] Care Team Providers Care Mix Crusher Operator Name Role Phone Ismael Chamberlain MD Primary Care Provider [phone] Esau Sutton MD Unavailable [phone] Allergies Active Allergy Reactions Criticality Noted Date Comments Oxycodone Hallucinations Medium 04/06/2016 Medications ferrous sulfate ER (IRON) 159 mg (45 mg of elemental iron) tablet extended release 0 0 5 Active calcium carbonate-joe min D3 (CALTRATE 600 + D) 600 mg (1,500 mg)-800 unit tablet,chewabl e 0 0 5 Active ascorbic acid, vitamin C, (VITAMIN C) 500 mg capsule, extended release CR capsule Take 1 capsule (500 mg total) by mouth daily Active aspirin 81 mg enteric coated tablet Take 1 tablet (81 mg total) by mouth daily 60 tablet 1 0 Active senna-docusate (PERICOLACE) 8.6-50 mg Take 1 tablet by mouth 2 (two) times a day as needed for constipation 60 tablet 2 4 Active Folbee 2.5-25-1 mg tablet 4 Active Jardiance 10 mg tablet TAKE ONE TABLET BY MOUTH DAILY 30 tablet 11 4 Active clopidogreL (PLAVIX) 75 mg tablet TAKE ONE TABLET BY MOUTH DAILY 30 tablet 11 4 Active rosuvastatin (CRESTOR) 20 mg tablet Take 1 tablet (20 mg total) by mouth daily 30 tablet 11 4 Active sertraline (ZOLOFT) 50 mg tablet Take 1 tablet (50 mg total) by mouth daily 30 tablet 11 4 Active sacubitriL-anjel sartan (Entresto) 97-103 mg tablet Take 1 tablet by mouth 2 (two) times a day 60 tablet 11 4 Active spironolactone (ALDACTONE) 25 mg tablet Take 1 tablet (25 mg total) by mouth daily 30 tablet 11 5 026 Active carvediloL (COREG) 12.5 mg tablet Take 1 tablet (12.5 mg total) by mouth 2 (two) times a day 60 tablet 11 5 026 Active clobetasoL (TEMOVATE) 0.05 % creamIndicatio ns:Lichen sclerosus Apply nightly to area of irritation externally for 12 weeks, then 2 x per week. 30 g 1 5 Active clobetasoL (TEMOVATE) 0.05 % creamIndicatio ns:Lichen sclerosus Apply nightly to area of irritation externally for 12 weeks, then 2 x per week. 30 g 1 4 025 Discontin ued(Reord er) Active Problems Problem Noted Date Diagnosed Date Syncope and collapse 11/01/2024 Aftercare following left knee joint replacement surgery 05/08/2024 Hypotension due to drugs 03/16/2024 Assessment & Plan (03/16/2024 2:43 PM CDT): Hypotension / secondary to medication and possible dehydration. Improvement after bolus fluids. BP soft on day of discharge. Plan: Recommended to hold Coreg for 2 days. We will continue Entresto for history of CHF. Recommended to follow up with PCP on discharge. BMI 30.0-30.9,adult 03/16/2024 Overview (03/16/2024): BMI 30.84. Chronic. Plan: Recommend continued lifestyle modifications. Assessment & Plan (03/16/2024 8:19 AM CDT): BMI 30.84. Chronic. Plan: Recommend continued lifestyle modifications. Thrombocytopenia 03/16/2024 Assessment & Plan (03/16/2024 2:48 PM CDT): Platelets of 129K on 03/16. No evidence of active bleeding or bruising at this time. Plan: Monitor CBC. Primary osteoarthritis of left knee 01/25/2024 Assessment & Plan (03/16/2024 8:20 AM CDT): Pod day 1 from left knee arthroplasty. Plan: Management per primary orthopedic surgery Recommend reduced narcotic use at this time Personal history of colonic polyps 05/20/2022 Overview (05/20/2022): Added automatically from request for surgery [id number] Encounter for screening colonoscopy 05/20/2022 Overview (05/20/2022): Added automatically from request for surgery [id number] Chronic systolic heart failure 05/19/2022 Assessment & Plan (03/16/2024 2:46 PM CDT): Chronic. Not in exacerbation at this time. Plan: Continue Entresto 97-103 mg tablet b.i.d. Continue Coreg 25 mg b.i.d. Recommend strict Is&Os Recommend daily weights Recommend keep potassium close to 4 and magnesium close to 2 Recommend repeat BMP within 3-7 days to evaluate for climbing creatinine levels. Cardiomyopathy, ischemic 05/19/2022 Assessment & Plan (07/05/2022 11:07 AM CDT): LVEF 15%, narrow QRS duration, not a candidate for ENTERPRISE RECORDS ANALYST On GDMT per corporation officer Coronary artery disease invo lving [place] coronary artery of [place] heart 12/09/2021 Overview (12/09/2021): Added automatically from request for surgery [id number] Assessment & Plan (03/16/2024 8:22 AM CDT): Chronic. Plan: Continue aspirin 81 mg daily Continue Coreg 25 mg b.i.d. Continue Plavix 70 mg daily Continue Crestor 20 mg daily VT (ventricular tachycardia) 06/13/2018 Assessment & Plan (07/05/2022 11:05 AM CDT): VT s/p secondary prevention ICD 07/2017 No recent ICD shocks, no ventricular arrhythmias on ICD interrogation ICD (implantable cardioverter-defibrillator) in place 06/13/2018 Assessment & Plan (07/05/2022 11:06 AM CDT): Single chamber ICD is functioning appropriately as programmed Lead impedance, sensing, and threshold is stable No programming changes Continue remote monitoring quarterly Follow up in 1 year for device check Unspecified orthopedic aftercare 03/27/2017 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 0 03/27/2017 Encounters Date Type Department Care Team Description 03/05/2025 Telephone [facility] at [address] [place] [address] Geraldo Bone MD 02/28/2025 Telephone [facility] at [address] [place] [address] Geraldo Bone MD 02/27/2025 Telephone [facility] [address] [place] [address] Diane Xie RN Temavate Cream Refill 01/22/2025 Telephone [facility] at [address] [place] [address] Rosita Mo MA from Last 3 Months Surgical History Surgery Date Site/Laterality Comments OTHER SURGICAL HISTORY ICD implant OTHER SURGICAL HISTORY lipoma removed TONSILLECTOMY Tonsillectomy COLONOSCOPY 06/04/2016 - 07/04/2016 CARDIAC DEFIBRILLATOR PLACEMENT 09/04/2016 - 09/03/2017 [facility] CORONARY ANGIOPLASTY WITH STENT PLACEMENT patient has a total of 3 stents Medical History Medical History Date Comments Hypertension Hypertension Anemia Anemia Hx Other Medical high cholestero l Hx Other Medical 2003 heart attack CAD (coronary artery disease), [place] coronary a rtery ICD (implantable cardioverter-defibrillator) in place VT (ventricular tachycardia) (HCC) Chronic systolic heart failure (HCC) Cardiomyopathy (HCC) Family History Medical History Relation Name Comments Bladder Cancer Father Hypertension Father Cancer Father's Brother Breast cancer Father's Sister Heart disease Maternal Grandfather Heart disease Mother Family history of cardiac disorder - (Added by TW Conv) Hypertension Mother Heart disease Mother's Brother Cancer Other 1 Family history of cancer; Heart disease Other 2 Family history of heart problems; Hypertension Other 3 Family history of Hypertension; Relation Name Status Comments Father Father's Brother Father's Sister Maternal Grandfather Mother Mother's Brother Other 1 Other 2 Other 3 Social History Tobacco Use Types Packs/Day Years Used Date Smoking Tobacco: Former Cigarettes Smokeless Tobacco: Never Tobacco Cessation:Counseling Given: Not Answered Alcohol Use Standard Drinks/Week Comments Yes 0 [...] more points, staff should administer the PHQ-9) 0 06/24/2024 Personal Safety Answer Date Recorded Have you ever been in or are you currently in a harmful physical or emotional relationship or is someone making you feel afraid or unsafe? Denies 11/01/2024 Comments No Sex and Gender Information Value Date Recorded Sex Assigned at Not on file Legal Sex Female 2:06 PM MACHINE OPERATOR TRANSPLANTER Gender Identity Female 02/22/2023 3:53 PM CDT Sexual Orientation Straight 07/08/2021 9: 32 AM CDT Obstetrics History Para Term AB IAB SAB Ectopic Multiple Livin g Live Births 0 0 0 0 0 0 0 0 0 0 0 Last Filed Vital Signs Vital Sign Reading Time Taken Comments Blood Pressure 116/61 11/02/2024 2:45 PM MACHINE OPERATOR TRANSPLANTER Pulse 66 11/02/2024 2:45 PM MACHINE OPERATOR TRANSPLANTER Temperature 36.6 C (97.8 F) 11/02/2024 2:45 PM MACHINE OPERATOR TRANSPLANTER Respiratory Rate 18 11/02/2024 2:45 PM MACHINE OPERATOR TRANSPLANTER Oxygen Saturation 99% 11/02/2024 2:45 PM MACHINE OPERATOR TRANSPLANTER Inhaled Oxygen Concentration - - Weight 76.1 kg (167 lb 12.3 oz) 025 12:26 AM MACHINE OPERATOR TRANSPLANTER Height 160 cm (5' 3) 11/02/2024 12:26 AM MACHINE OPERATOR TRANSPLANTER Body Mass Index 29.72 11/02/2024 12:26 AM MACHINE OPERATOR TRANSPLANTER Plan of Treatment Health Maintenance Due Date Last Done Comments Osteoporosis Screening-Bone Density Scan 1950 DTaP/Tdap/Td Vaccine (1 - Tdap) 1962 Hepatitis B Screening 1969 Zoster Vaccine (1 of 2) 2001 Pneumococcal vaccine 65+ (2 of 2 - PPSV23) 02/04/2019 12/10/2018 Influenza Vaccine (#1) 2025 Depression Screening 06/24/2025 06/24/2024, 03/08/2024, 06/13/2023 Well Visit 65+ 06/24/2025 06/24/2024, 06/13/2023 Fall Risk Assessment 11/02/2025 11/02/2024 Breast Cancer Screening-Mammogram 12/03/2025 025, 10/17/2023 Colon Cancer Screening-Colonoscopy 07/21/2032 07/21/2022, 08/09/2016, 07/13/2011 Hepatitis C Screening Completed 03/03/2020 Colon Cancer Screening-CT Colonography Discontinued 07/21/2022, 08/09/2016, 07/13/2011 Colon Cancer Screening-DNA Stool Discontinued 07/21/2022, 08/09/2016, 07/13/2011 Colon Cancer Screening-FIT Discontinued 07/21, 08/09/2016, 07/13/2011 Colon Cancer Screening-Sigmoidoscopy Discontinue d 07/21/2022, 08/09/2016, 07/13/2011 Medical Devices Implanted Type Area Wool Classer Device Identifier Shelf Expiration Date Model / Serial / Lot Techulon Synergy 3.5mm 24mm 144cm Radiopaque 1 Access Port Inflation Lumen [id number] - [id number] Implanted:Qty: 1 on 12/28/2021 by Riki Rodriguez MD at [facility] [employer] 06/08/2022 [id number] / / [id number] [employer] Phylicia Synergy 4mm 38mm 144cm Radiopaque 1 Access Port Inflation Lumen [id number] - [id number] Implanted:Qty: 1 on 12/28/2021 by Riki Rodriguez MD at [facility] [employer] 12/01/2022 [id number] / / [id number] Angio-Seal Evolution 6fr Vascular Closure [id number] - [id number] Implanted:Qty: 1 on 12/28/2021 by Riki Rodriguez MD at [facility] [employer] Phylicia 08/03/2022 [id number] / / [id number] [employer]uy [employer] Attune Fb Tib Base Sz 6 Por [id number] - [id number] Implanted:Qty: 1 on 03/15/2024 by Esau Sutton MD at [facility] Left: Knee [employer]opaed[employer] Inc [id number] 02/01/2034 [id number] / / [id number] [employer] Component Femoral Knee Porous Posterior Stabilized Left Attune Size 5 Alden Chromium [id number] - [id number] Implanted:Qty: 1 on 03/15/2024 by Esau Sutton MD at [facility] Left: Knee [employer] [id number] 09/03/2033 [id number] / / [id number] [employer] Attune 38mm Cemented Medialize Knee Dome Patellar Aox Sterile [id number] - [id number] Implanted:Qty: 1 on 03/15/2024 by Esau Sutton MD at [facility] Left: Knee [employer] [id number] 10/04/2031 [id number] / / [id number] [employer] Cmw 2 Fast Set Cement 20gm Bone Sterile 3322-020 - [id number] Implanted:Qty: 1 on 03/15/2024 by Esau Sutton MD at [facility] Left: Knee [employer] [id number] 12/02/2025 [id number] / / [id number] [employer] Attune 6mm Posterior Stabilize Fix Bearing Knee 5 Insert Tibial [id number] - [id number] Implanted:Qty: 1 on 03/15/2024 by Esau Sutton MD at [facility] Left: Knee [employer] [id number] 01/01/2029 [id number] / / [id number] Procedures Procedure Name Priority Date/Time Associated Diagnosis Comments DIAGNOSTIC MAMMOGRAM BILATERAL W TREY Schedule Routine, Read Routine (OP Routine) 12/03/2024 2:38 PM CDT Abnormal mammogram of right breast COLONOSCOPY 07/21/2022 7:26 AM MACHINE OPERATOR TRANSPLANTER HEPATITIS C ANTIBODY Routine 03/03/2020 from Last 3 Months or Most Recently Relevant to Health Maintenance Results * DIAGNOSTIC MAMMOGRAM BILATERAL W TRYE (12/03/2024 2:38 PM CDT) Anatomical Region Laterality Modality Breast Bilateral Mammography 12/03/2024 2:5 7 PM CDT Impressions 12/03/2024 2:57 PM CDT 1. Unchanged probably benign right breast 6 mm focal asymmetry at 8-9:00, mid to posterior depth. This was occult on prior ultrasound. Follow-up right diagnostic mammogram in one year is recommended to assess for continued stability. 2. No mammographic evidence of malignancy in the left breast. Screening mammography of the left breast in one year is recommended. The patient was notified of these findings and recommendations at the time of the examination. OVERALL FINAL ASSESSMENT: BI-RADS Category 3: Probably Benign. Electronically signed by: Markus Raymond M.D. Narrative 12/03/2024 2:57 PM CDT EXAMINATION: BILATERAL DIGITAL DIAGNOSTIC MAMMOGRAM INCLUDING CAD AND BILATERAL DIGITAL BREAST TOMOSYNTHESIS HISTORY: 74-year-old female presents for follow-up of a probably benign finding in the right breast and for annual left screening mammogram. COMPARISON: 05/30/2024, 11/13/2023, 10/17/2023 TECHNIQUE: Full field digital mammographic views of BOTH breasts were performed, including computer aided detection (CAD) and BILATERAL digital breast tomosynthesis (DBT). BREAST PARENCHYMAL COMPOSITION: There are scattered areas of fibroglandular density. MAMMOGRAM FINDINGS: A pacemaker generator again partially obscures the upper left breast and left axilla on the MLO view. The probably benign 6 mm focal asymmetry at the 8 to 9 o'clock position of the right breast, mid to posterior depth, has not suspiciously changed since October 2023. This was occult on prior ultrasound. There is no new suspicious finding in either breast on mammogram. Jae Green MD IMG MAMMO PROCEDURES Final Result * COLONOSCOPY (07/21/2022 7:26 AM MACHINE OPERATOR TRANSPLANTER) Anatomical Region Laterality Modality Other Narrative Procedure Note Maxi Oscar MD - 07/21/2022 7:26 AM CST [facility] Patient Name: Nimco Amato Procedure Date: 07/21/2022 7:26 AM Date of : 1950 Admit Type: Outpatient Age: 72 Gender: Female Attending MD: Maxi Oscar M.D. Room: [facility] ENDOSCOPY ROOM 2 Note Status: Finalized Patient Profile: Refer to note in patient chart for documentation of history and physical. Procedure: Colonoscopy Indications: High risk colon cancer surveillance: Personalhistory of colonic polyps, Last colonoscopy: August2016 Referring MD: Ismael Chamberlain M.D. Providers: Maxi Oscar M.D. Impression: - Hemorrhoids found on perianal exam. - Diverticulosis in the sigmoid colon. - The examination was otherwise normal. - No specimens collected. Recommendation: - Discharge patient to home. - Resume previous diet. - Continue present medications. - Repeat colonoscopy in 5 years for surveillance. - Resume Plavix (clopidogrel) at prior dosetoday. - Repeat colonoscopy in 5 years for surveillance. - Return to primary care physician as previously scheduled. Medicines: Propofol per Anesthesia Complications: No immediate complications. Estimated Blood Loss: Estimated blood loss: none. Procedure: Pre-Anesthesia Assessment: - This assessment was completed [Time ofAssessment] prior to the administration of sedation. The benefits, risks and alternatives of theprocedure and sedation were discussed and informed consentwas obtained. All questions were answered. Please referto the signed informed consent document in the medical record. The bowel preparation used was Miralax via single dose instruction. The bowel preparation used was bisacodyl tablets via single dose instruction.The scope was passed under direct vision. TheColonoscope [id number] was introduced through the anus and advanced to the the cecum, identified by appendiceal orifice and ileocecal valve. The colonoscopy was performed without difficulty. The patient tolerated the procedure well. The qualityof the bowel preparation was adequate to identifypolyps. The ileocecal valve, appendiceal orifice, andrectum were photographed. Findings: Hemorrhoids were found on perianal exam. Multiple small and large-mouthed diverticula were found in thesigmoid colon. The exam was otherwise without abnormality. Electronically signed by Maxi Oscar M.D. Maxi Oscar M.D. 07/21/2022 8:47:31 AM Number of Addenda: 0 Note Initiated On: 07/21/2022 7:26 AM Procedure Code(s): --- Professional --- G0105, Colorectal cancer screening; colonoscopy on individual at high risk Diagnosis Code(s): --- Professional --- K57.30, Diverticulosis of large intestine without perforation orabscess without bleeding K64.9, Unspecified hemorrhoids Z86.010, Personal history of colonic polyps CPT copyright 2020 [employer]. All rights reserved. The codes documented in this report are preliminary and upon meter/relay craftsman reviewmay be revised to meet current compliance requirements. Recognized by the [employer] for promoting quality in endoscopy Maxi Oscar MD ENDOSCOPY PROCEDURES Final Re sult * Hepatitis C antibody (03/03/2020) Blood specimen (specimen) Historical Provider LAB MICROBIOLOGY - GENERA L ORDERABLES Final Result from Last 3 Months or Most Recently Relevant to Health Maintenance Insurance [facility] [id number] [facility] [id number] Advance Directives For more information, please contact: [phone] * Full Code (Latest Code Status on File) Date Activated Date Inactivated Comments 11/01/2024 11:30 PM 11/02/2024 8:05 PM * Full Code Date Activated Date Inactivated Comments 03/15/2024 1:09 PM 03/16/2024 5:57 PM * Full Code Date Activated Date Inactivated Comments 07/21/2022 7:45 AM 07/21/2022 1:47 PM * Full Code Date Activated Date Inactivated Comments 07/21/2022 7:44 AM 07/21/2022 7:45 AM * Full Code Date Activated Date Inactivated Comments 12/28/2021 12:36 PM 12/29/2021 4:54 PM Care Teams Mix Crusher Operator Relationship Specialty Start Date End Date Ismael Chamberlain MD PCP - General Internal Medicine 06/04/20 Esau Sutton MD [address] [place] [address] [place] [address] Surgeon Orthopedic Surgery 03/15/24
--- OUTSIDE RECORDS SUMMARY | 2025-03-20 09:18 | XMS_ITS | Referral Summary ---
Author Organization [facility] Building [facility] Address [address] [place] [address] Care Team Providers Care Chemical Dependency Professional Name Role Phone Ismael Chamberlain MD Primary Care Provider [phone] Esau Sutton MD Unavailable [phone] Encounters Date Type Department Care Team Description 03/05/2025 Telephone [place] Case[facility] Intake at [address] [place] [phone] Geraldo Bone MD 02/28/2025 Telephone [place] Caseworker Intake at [address] [place] [address] Geraldo Bone MD 02/27/2025 Telephone [facility] [address] [place] [address] [address] [place] [address] Diane Xie RN Temavate Cream Refill 01/22/2025 Telephone [place] Caseworker Intake at [address] [place] [address] Rosita Mo MA from Last 3 Months Allergies Active Allergy Reactions Criticality Noted Date [...] & Plan (03/16/2024 2:43 PM CDT): Hypotension 7/12 secondary to medication and possible dehydration. Improvement [...] (05/20/2022): Added automatically from request for surgery [id number] Encounter for screening colonoscopy 05/20/2022 Overview (05/20/2022): Added automatically from request for surgery [id number] Chronic systolic heart failure 05/19/2022 Assessment & [...] narrow QRS duration, not a candidate for OFFICE SUPPORT ASSOCIATE On GDMT per leader assembler Coronary artery disease invo lving [place] coronary artery of [place] heart 12/09/2021 Overview (12/09/2021): Added automatically from request for surgery [id number] Assessment & Plan (03/16/2024 8:22 AM CDT): [...] due to internal joint prosthesis 0 03/27/2017 Social History Tobacco Use Types Packs/Day Years [...] on file Legal Sex Female 2:06 PM RESEARCH ASSOCIATE Gender Identity Female 02/22/2023 3:53 PM CDT Sexual Orientation Straight 07/08/2021 9: 32 AM CDT Last Filed Vital Signs Vital Sign Reading Time Taken Comments Blood Pressure 116/61 11/02/2024 2:45 PM RESEARCH ASSOCIATE Pulse 66 11/02/2024 2:45 PM RESEARCH ASSOCIATE Temperature 36.6 C (97.8 F) 11/02/2024 2:45 PM RESEARCH ASSOCIATE Respiratory Rate 18 11/02/2024 2:45 PM RESEARCH ASSOCIATE Oxygen Saturation 99% 11/02/2024 2:45 PM RESEARCH ASSOCIATE Inhaled Oxygen Concentration - - Weight 76.1 kg (167 lb 12.3 oz) 025 12:26 AM RESEARCH ASSOCIATE Height 160 cm (5' 3) 11/02/2024 12:26 AM RESEARCH ASSOCIATE Body Mass Index 29.72 11/02/2024 12:26 AM RESEARCH ASSOCIATE Plan of Treatment Not on file Medical Devices Implanted Type Area Field Crop Farm Worker Device Identifier Shelf Expiration Date Model / Serial / Lot [employer] Phylicia Synergy 3.5mm 24mm 144cm Radiopaque 1 Access Port Inflation Lumen [id number] - [id number] Implanted:Qty: 1 on 12/28/2021 by Riki Rodriguez MD at [facility] [employer] Phylicia 06/08/2022 [id number] / / [id number] [employer] Phylicia Synergy 4mm 38mm 144cm Radiopaque 1 Access Port Inflation Lumen [id number] - [id number] Implanted:Qty: 1 on 12/28/2021 by Riki Rodriguez MD at [facility] [employer] Phylicia 12/01/2022 [id number] / / [id number] Angio-Seal Evolution 6fr Vascular Closure [id number] - [id number] Implanted:Qty: 1 on 12/28/2021 by Riki Rodriguez MD at [facility] 08/03/2022 [id number] / / [id number] [employer] Attune Fb Tib Base Sz 6 Por [id number] - [id number] Implanted:Qty: 1 on 03/15/2024 by Esau Sutton MD at [facility] Left: Knee [employer] [id number] 02/01/2034 [id number] / / [id number] [employer] Component Femoral Knee Porous Posterior Stabilized Left Attune Size 5 [place] [employer]ium [id number] - [id number] Implanted:Qty: 1 on 03/15/2024 by Esau Sutton MD at [facility] Left: Knee [employer] [id number] 09/03/2033 [id number] / / [id number] [employer] Attune 38mm Cemented Medialize Knee Dome Patellar Aox Sterile [id number] - [id number] Implanted:Qty: 1 on 03/15/2024 by Esau Sutton MD at [facility] Left: Knee [employer] [id number] 10/04/2031 [id number] / / [id number] [employer] Cmw 2 Fast Set Cement 20gm Bone Sterile [id number] - [id number] Implanted:Qty: 1 on 03/15/2024 by Esau Sutton MD at [facility] Left: Knee [employer] [id number] 12/02/2025 [id number] / / [id number] [employer] Attune 6mm Posterior Stabilize Fix Bearing Knee 5 Insert Tibial [id number] - [id number] Implanted:Qty: 1 on 03/15/2024 by Esau Sutton MD at [facility] Left: Knee [employer] [id number] 01/01/2029 [id number] / / [id number] Procedures Procedure Name Priority Date/Time Associated Diagnosis Comments DIAGNOSTIC MAMMOGRAM BILATERAL W TREY Schedule Routine, Read Routine (OP Routine) 12/03/2024 2:38 PM CDT Abnormal mammogram of right breast COLONOSCOPY 07/21/2022 7:26 AM RESEARCH ASSOCIATE HEPATITIS C ANTIBODY Routine 03/03/2020 from Last 3 Months or Most Recently Relevant to Health Maintenance Results * DIAGNOSTIC MAMMOGRAM BILATERAL W TREY (12/03/2024 2:38 PM CDT) Anatomical Region Laterality Modality Breast Bilateral Mammography 12/03/2024 2:57 PM CDT Impressions 12/03/2024 2:57 PM CDT [...] Final Result * COLONOSCOPY (07/21/2022 7:26 AM RESEARCH ASSOCIATE) Anatomical Region Laterality Modality Other Narrative Procedure Note Maxi Oscar MD - 07/21/2022 7:26 AM CST [facility] Patient Name: Nimco Amato Procedure Date: 07/21/2022 7:26 AM Date of : 1950 Admit Type: Outpatient Age: 72 Gender: Female Attending MD: Maxi Oscar M.D. Room: [facility] ENDOSCOPY ROOM 2 Note Status: Finalized Patient [...] scope was passed under direct vision. TheColonoscope [id number] was introduced through the anus and advanced [...] history of colonic polyps CPT copyright 2020 [employer]. All rights reserved. The codes documented in this report are preliminary and upon orthotics technician reviewmay be revised to meet current compliance requirements. Recognized by the [employer] for promoting quality in endoscopy Maxi Oscar MD ENDOSCOPY PROCEDURES Final Re sult * Hepatitis C antibody (03/03/2020) Blood specimen (specimen) Historical Provider LAB MICROBIOLOGY - GENERA L ORDERABLES Final Result from Last 3 Months or Most Recently Relevant to Health Maintenance Insurance [place] [id number] [facility] [id number] Advance Directives For more information, please contact: [phone] * Full Code (Latest Code Status on [...] 12:36 PM 12/29/2021 4:54 PM Care Teams Chemical Dependency Professional Relationship Specialty Start Date End Date Ismael Chamberlain MD PCP - General Internal Medicine 06/04/20 Esau Sutton MD [address] [place] [address] [address] [place] [address] Surgeon Orthopedic Surgery 03/15/24
--- OUTSIDE RECORDS SUMMARY | 2025-03-20 09:18 | XMS_ITS | Clinical Summary ---
Author Organization [facility] Address [address] [place] [address] Care Team Providers Care Instructor Trainer Canine Service Name Role Phone Unavailable Primary Care Provider Unavailabl e Source Comments [facility],non-owned Affiliates and Associated Physician Practices is amultiple site organization consisting of ambulatory clinics and hospital sitesin [place], [place], [place] and [place]. This disclosure is being madepursuant to the Care Everywhere program and may not contain all information available regarding this patient. 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 Gender Identity Not on file Sexual Orientation Not on file Plan of Treatment Health Maintenance Due Date Last Done Comments BONE DENSITY TESTING 1950 COLOGUARD (AGES 45-75) - COL ON CA SCREENING 1950 COLON MONITORING 1950 COLONOSCOPY - COLON CA SCREENING 1950 CT COLONOGRAPHY - COLON CA SCREENING 1950 Colorectal Cancer Screening 1950 FIT - COLON CA SCREENING 1950 FLEX SIG - COLON CA SCREENING 1950 LIPID TESTING 1950 MAMMOGRAM 1950 HEPATITIS C SCREENING 02/12/1969 DTAP/TDAP/TD VACCINES (1 - Tdap) 1970 PNEUMOCOCCAL VACCINE 50+ (1 of 1 - PCV) 2001 ZOSTER VACCINE (1 of 2) 2001 COVID-19 VACCINE (2023-2 5 season) 2024 DEPRESSION SCREENING 09/04/2024 INFLUENZA VACCINE (#1) 2025 Respiratory Syncytial Virus (RSV) Vaccine Pt: or over 60 yrs (1 - 1-dose 75+ series) 2026 HEPATITIS B VACCINE Aged Out No longe r eligible based on patient's age to complete this topic HIB VACCINE Aged Out No longer eligi ble based on patient's age to complete this topic HPV VACCINE Aged Out No longer eligi ble based on patient's age to complete this topic MENINGOCOCCAL (Group B) VACC INE SHARED DECISION-MAKING Aged Out No longer eligibl e based on patient's age to complete this topic MENINGOCOCCAL GROUPS A/C/Y/W VACCINE Aged Out No longer eligible b ased on patient's age to complete this topic [place] [facility] [place] Address: [place] [id number] [place] [address] SELF PAY NO INSURANCE Member Subscriber Plan / Payer (Ef fective for All Dates) Name:Isaias Amato Member ID:Not on file Relation to Subscriber:Not on file Name:ISAIAS AMATO Subscriber ID:Not on file (Home) Address: [address] [place] [address] Payer ID:Not on file Group ID:Not on file Type:Self Pay Address: [place], [place]
--- OUTSIDE RECORDS SUMMARY | 2025-03-20 09:18 | XMS_ITS | Clinical Summary ---
Author Organization [facility] Address [address] [place] [address] Phone Care Team Providers Care Business Practices Officer Name Role Phone Kamille Claudio MD Primary Care Provider [phone] Allergies Active Allergy Reactions Criticality Noted Date Comments Oxycodone Hallucinations 04/06/2016 Medications Calcium Carb-Cholecalci ferol (CALCIUM CARBONATE-VITAM IN D3 PO) Take 1 Tab by mouth daily. Active carvedilol (COREG) 25 MG Tablet Take 25 mg by mouth 2 times daily. Active clopidogrel (PLAVIX) 75 MG Tablet Take 75 mg by mouth daily. Active ferrous sulfate 325 (65 FE) MG Tablet Take 325 mg by mouth 2 times daily. Active Folic Acid-Vit B6-Vit B12 (FOLBEE PO) Take 1 Tab by mouth daily. Active lisinopril (PRINIVIL, ZESTRIL) 40 MG Tablet Take 40 mg by mouth 2 times daily. Active Niacin CR 1000 MG Tablet Controlled Release Take 1,000 mg by mouth 2 times daily. Active rosuvastatin (CRESTOR) 5 MG Tablet Take 5 mg by mouth daily. Active sertraline (ZOLOFT) 50 MG Tablet Take 50 mg by mouth daily. Active Ascorbic Acid (VITAMIN C) 500 MG Capsule Take 500 mg by mouth daily. Active Vitamin E 400 UNIT Tablet Take 400 mg by mouth daily. Active ondansetron (ZOFRAN) 4 MG Tablet Take 4 mg by mouth every 6 hours as needed for Nausea. Active enoxaparin (LOVENOX) 40 MG/0.4ML Solution 40 mg by Subcutaneous route daily. Active acetaminophen (TYLENOL) 500 MG Tablet Take 1,000 mg by mouth every 6 hours as needed for Pain (mild pain). 6 Active Social History Tobacco Use Types Packs/Day Years Used Date Smoking Tobacco: Never Assessed Comments Unknown Sex and Gender Information Value Date Recorded Sex Assigned at Not on file Legal Sex Female 5:47 PM CDT Gender Identity Not on file Sexual Orientation Not on file Last Filed Vital Signs Vital Sign Reading Time Taken Comments Blood Pressure 136/68 04/06/2016 9:00 AM CDT Pulse 68 04/06/2016 9:00 AM CDT Temperature 36.5 C (97.7 F) 04/06/2016 9:00 AM CDT Respiratory Rate 18 04/06/2016 9:00 AM CDT Oxygen Saturation - - Inhaled Oxygen Concentration - - Weight 0 kg (0 lb) 04/04/2016 2:00 PM CDT Height 162.6 cm (5' 4) 03/28/2016 12:00 PM CDT Body Mass Index - - Plan of Treatment Health Maintenance Due Date Last Done Comments DEXA Bone Density 1950 Hepatitis C Virus (HCV) Screening 1950 TdaP Immunization 1950 Colonoscopy 02/18/1996 Colorectal Cancer Screening 02/18/1996 Cologuard 2001 Immunochemical Fecal Occult Blood 2001 Mammogram 2001 Pneumococcal Immunization (5 0+ years) (1 of 1 - PCV) 2001 Zoster Immunization (1 of 2) 2001 Influenza Immunization (#1) 2024 SARS-COV-2 Immunization ( - 2023-25 season) 2024 Respiratory Syncytial Virus (RSV) Immunization (Adult) (1 - 1-dose 75+ series) 2026 Hepatitis B Immunization Aged Out No longer eligible based on patient's age to complete this topic Meningococcal Immunization (ACWY) Aged Out No longer eligible based on patient's age to complete this topic Rotavirus Immunization Aged Out No lo nger eligible based on patient's age to complete this topic Insurance [facility] Advance Directives * Full Code (Latest Code Status on File) Date Activated Date Inactivated Comments 04/02/2016 12:18 AM Care Teams Business Practices Officer Relationship Specialty Start Date End Date Kamille Claudio MD [address] [place] [address] PCP - General General Surgery 03/24/16
--- OUTSIDE RECORDS SUMMARY | 2025-03-20 09:18 | XMS_ITS | Encounter Summary ---
Author Organization [facility] Address [address] [place] [address] Phone Care Team Providers Care Reed Maker Name Role Phone Kamille Claudio MD Primary Care Provider Ismael Chamberlain MD Primary Care Provider [phone] Esau Sutton MD Unavailable [phone] Encounter Details Date Type Department Care Team (Late st Contact Info) Description 06/17/2015 Orders Only [facility] ProviderLinnea MD [address] [place] [address] Social History Tobacco Use Types Packs/Day Years Used Date Smoking Tobacco: Former Alcohol Use Standard Drinks/Week Comments Yes 0 (1 standard drink = 0.6 oz pur e alcohol) Comments Unknown Sex and Gender Information Value Date Recorded Sex Assigned at Not on file Legal 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 us Historical Provider [facility] RAJIV HDEZ Final Result documented in this encounter Visit Diagnoses Not on filedocumented in this encounter Additional Health Concerns Infection Onset Date Last Indicated Resolved Time COVID: Suspected 11/01/2024 11/01/2024 11/01/2024 7:01 PM IT SOFTWARE ENGINEER documented as of this encounter Care Teams Reed Maker Relationship Specialty Start Date End Date Kamille Claudio MD [address] [place] [address] PCP - General 01/10/17 06/03/20 Ismael Chamberlain MD [address] [place] [address] PCP - General Internal Medicine 06/04/20 Esau Sutton MD [address] [place] [address] [address] [address] Surgeon Orthopedic Surgery 03/15/24 documented as of this encounter
--- OUTSIDE RECORDS SUMMARY | 2025-03-20 09:18 | XMS_ITS | Encounter Summary ---
Author Organization [facility] Address [address] [place] [address] Phone Care Team Providers Care Activity Leader Name Role Phone Kamille Claudio MD Primary Care Provider [phone] Ismael Chamberlain MD Primary Care Provider [phone] Esau Sutton MD Unavailable [phone] Encounter Details Date Type Department Care Team (Late st Contact Info) Description 06/19/2017 Orders Only [facility] Provider, MD Linnea [address] [place] [address] Social History Tobacco Use Types Packs/Day Years Used Date Smoking Tobacco: Former Alcohol Use Standard Drinks/Week Comments Yes 0 (1 standard drink = 0.6 oz pur e alcohol) Comments Unknown Sex and Gender Information Value Date Recorded Sex Assigned at Not on file Legal 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 us Historical Provider [facility] C[facility] PROCE DURES Final Result * CARDIOLOGY REPORT (06/19/2017) Anatomical Region Laterality Modality Other Narrative 06/19/2017 Ordered by an unspecified provider. us Historical Provider [facility] CARDIAC SERVICES PROCE DURES Final Result documented in this encounter Visit Diagnoses Not on filedocumented in this encounter Additional Health Concerns Infection Onset Date Last Indicated Resolved Time COVID: Suspected 11/01/2024 11/01/2024 11/01/2024 7:01 PM CURING PRESS OPERATOR documented as of this encounter Care Teams Activity Leader Relationship Specialty Start Date End Date Kamille Claudio MD [address] [place] [address] PCP - General 01/10/17 06/03/20 Ismael Chamberlain MD [address] [place] [address] PCP - General Internal Medicine 06/04/20 Esau Sutton MD [address] [facility] [address], [place] [address] Surgeon Orthopedic Surgery 03/15/24 documented as of this encounter
--- OUTSIDE RECORDS SUMMARY | 2025-03-20 09:18 | XMS_ITS | Patient Health Record ---
Author Organization [facility] Address [address] [place], [place] [address] Care Team Providers Care Batch Plant Supervisor Name Role Phone Ismael Chamberlain Unavailable Unavailable Reason For Referral No Information Medications Medication SIG (Take, Route, Frequency, Duration) Notes Start Date End Date Status clopidogrel 75 MG Oral Tablet ORAL clopidogrel 75 MG Oral TabletOriginal Medicationclopidogrel 75 MG Oral Tablet *Reorder from Digital Trowel for eRx and Interaction Alerts* 06/07/2021 Active 24 HR niacin 1000 MG Extended Release Oral Tablet [Niaspan] ORAL 24 HR niacin 1000 MG Extended Release Oral Tablet [Niaspan]Original [id number] HR niacin 1000 MG Extended Release Oral Tablet [Niaspan] *Reorder from Digital Trowel for eRx and Interaction Alerts* 09/01/2016 Active Aspirin 325 MG Oral Tablet ORAL aspirin 325 MG Oral TabletOriginal Medicationaspirin 325 MG Oral Tablet *Reorder from Digital Trowel for eRx and Interaction Alerts* 05/30/2016 Active Ascorbic Acid 500 MG Oral Tablet ORAL ascorbic acid 500 MG Oral TabletOriginal Medicationascorbic acid 500 MG Oral Tablet *Reorder from Digital Trowel for eRx and Interaction Alerts* 05/30/2016 Active vitamin E 90 MG Oral Capsule ORAL vitamin E 90 MG Oral CapsuleOriginal Medicationvitamin E 90 MG Oral Capsule *Reorder from Digital Trowel for eRx and Interaction Alerts* 05/30/2016 Active diclofenac sodium 0.01 MG/MG Topical Gel [Voltaren] CUTANEOUS diclofenac sodium 0.01 MG/MG Topical Gel [Voltaren]Original Medicationdiclofenac sodium 0.01 MG/MG Topical Gel [Voltaren] *Reorder from Digital Trowel for eRx and Interaction Alerts* 05/27/2016 Active Plan Of Treatment No Information Insurance Providers Payer Name Payer Address Payer Phone Subscriber Number Group Number Insured Name Patient Relationship to Insured Coverage Start Date Coverage End Date [facility] [address] [place], [place] [id number] ISAIAS DIAS Self - patient is the insured
--- OUTSIDE RECORDS SUMMARY | 2025-03-20 09:18 | XMS_ITS | Encounter Summary ---
Author Organization [facility] Address [address] [place] [address] Phone Care Team Providers Care Coke Drawer Name Role Phone Kamille Claudio MD Primary Care Provider [phone] Ismael Chamberlain MD Primary Care Provider [phone] Esau Sutton MD Unavailable [phone] Encounter Details Date Type Department Care Team (Late st Contact Info) Description 10/07/2015 Orders Only [facility] Provider, MD Linnea [address] [place] [address] Social History Tobacco Use Types Packs/Day Years Used Date Smoking Tobacco: Former Alcohol Use Standard Drinks/Week Comments Yes 0 (1 standard drink = 0.6 oz pur e alcohol) Comments Unknown Sex and Gender Information Value Date Recorded Sex Assigned at Not on file Legal 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 us Historical Provider [facility] C[facility] SERVICES PROCE DURES Final Result * CARDIOLOGY REPORT (10/07/2015) Anatomical Region Laterality Modality Other Narrative 10/07/2015 Ordered by an unspecified provider. us Historical Provider CV CARDIAC SERVICES PROCE DURES Final Result documented in this encounter Visit Diagnoses Not on filedocumented in this encounter Additional Health Concerns Infection Onset Date Last Indicated Resolved Time COVID: Suspected 11/01/2024 11/01/2024 11/01/2024 7:01 PM COUPLING MACHINE OPERATOR documented as of this encounter Care Teams Coke Drawer Relationship Specialty Start Date End Date Kamille Claudio MD [address] [place] [address] PCP - General 01/10/17 06/03/20 Ismael Chamberlain MD [address] [place] [address] PCP - General Internal Medicine 06/04/20 Esau Sutton MD [address] [facility] [address], [place] [address] Surgeon Orthopedic Surgery 03/15/24 documented as of this encounter
[2025-03-20 09:33] LABS: Hematocrit 43.5 % (35.0-42.0); Hemoglobin 13.8 g/dL (11.7-13.8); Immature Granulocyte Percent A 0.0 % (0.0-0.0); Lymphocytes Absolute Auto 1.63 K/mm3 (1.10-4.50); Mean Corpuscular HGB Conc 31.7 g/dL (32-36); Mean Corpuscular Hemoglobin 29.6 pg (27.0-31.0); Mean Corpuscular Volume 93.3 fL (78.0-102.0); Nucleated Red Blood Cells Absolute Auto 0.00 K/mm3 (0.00-0.00); Nucleated Red Blood Cells Perc 0.0 % (0-0.0); Platelet Count Result 220 K/mm3 (150-420); Red Blood Count 4.66 M/mm3 (4.20-5.40); White Blood Count 4.1 K/mm3 (4.8-10.8)
[2025-03-20 10:29] LABS: Alanine Aminotransferase 34 U/L (6-35); Albumin Level 4.3 g/dL (3.5-5.1); Alkaline Phosphatase 48 U/L (38-126); Anion Gap 5 mmol/L (4-12); Aspartate Amino Transferase 42 U/L (14-36); Bilirubin,Total 1.0 mg/dL (0.2-1.3); Blood Urea Nitrogen 19 mg/dL (7-17); Calcium 9.0 mg/dL (8.4-10.2); Carbon Dioxide 26 mmol/L (22-30); Chloride 110 mmol/L (98-107); Cholesterol 203 mg/dL (0-200); Estimated Glomerular Filt Rate > 60; Glucose 94 mg/dL (65-110); HDL Direct 81 mg/dL; Osmolality Calculated 294 mOsm/kg (285-295); Potassium 4.4 mmol/L (3.4-5.0); Sodium 141 mmol/L (137-145); Total Protein 6.8 g/dL (6.3-8.2); Triglycerides 157 mg/dL (<150)
== END 2025-03-20 09:10 | disposition home or self-care (01) ==
LOC: CHSLAB 09:14
PROVIDERS: PCP Internal Medicine
DX: I25.10 Atherosclerotic heart disease of native coronary artery without angina pectoris (principal)
CPT/HCPCS: 36415; 80048; 80061; 80076; 85025

== ENCOUNTER 2025-05-22 08:44 | Outpatient (CLI) | payer OTHER, SELFPAY ==
--- OUTSIDE RECORDS SUMMARY | 2025-05-22 09:10 | XMS_ITS | Encounter Summary ---
Author Organization [facility] Address [address] [place] [address] Phone Care Team Providers Care Grocery Supervisor Name Role Phone Kamille Claudio MD Primary Care Provider [phone] Ismael Chamberlain MD Primary Care Provider [phone] Esau Sutton MD Unavailable [phone] Encounter Details Date Type Department Care Team (Late st Contact Info) Description 06/17/2015 Orders Only [facility] ProviderLinnea MD [address] [place] [address] Social History Tobacco Use Types Packs/Day Years Used Date Smoking Tobacco: Former Alcohol Use Standard Drinks/Week Comments Yes 0 (1 standard drink = 0.6 oz pur e alcohol) Comments Unknown Sex and Gender Information Value Date Recorded Sex Assigned at Not on file Legal Sex Female 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
--- OUTSIDE RECORDS SUMMARY | 2025-05-22 09:10 | XMS_ITS | Encounter Summary ---
Author Organization [facility] Address [address] [place] [address] Phone Care Team Providers Care Handbook Writer Name Role Phone Kamille Claudio MD Primary Care Provider [phone] Ismael Chamberlain MD Primary Care Provider [phone] Esau Sutton MD Unavailable [phone] Encounter Details Date Type Department Care Team (Late st Contact Info) Description 01/11/2017 Orders Only [facility] CLINCON[facility] ProviderLinnea MD [address] [place] [address] Social History Tobacco Use Types Packs/Day Years Used Date Smoking Tobacco: Former Alcohol Use Standard Drinks/Week Comments Yes 0 (1 standard drink = 0.6 oz pur e alcohol) Comments Unknown Sex and Gender Information Value Date Recorded Sex Assigned at Not on file Legal Sex Female 2:06 PM ASSOCIATE BUYER Gender Identity Female 02/22/2023 3:53 PM CDT [...] COVID: Suspected 11/01/2024 11/01/2024 11/01/2024 7:01 PM ASSOCIATE BUYER documented as of this encounter Care Teams Handbook Writer Relationship Specialty Start Date End Date Kamille Claudio MD [address] [place] [address] PCP - General 01/10/17 06/03/20 Ismael Chamberlain MD [address] [place] [address] PCP - General Internal Medicine 06/04/20 Esau Sutton MD [address], [place] [address] Surgeon Orthopedic Surgery 03/15/24 documented as of this encounter
--- OUTSIDE RECORDS SUMMARY | 2025-05-22 09:10 | XMS_ITS | Patient Health Record ---
Author Organization [facility] Address [address] [place], [place] [id number] Care Team Providers Care Nephrology Nurse Name Role Phone Ismael Chamberlain Unavailable Unavailable Reason For Referral No Information Medications Medication SIG (Take, Route, Frequency, Duration) Notes Start Date End Date Status clopidogrel 75 MG Oral Tablet ORAL clopidogrel 75 MG Oral TabletOriginal Medicationclopidogrel 75 MG Oral Tablet *Reorder from [employer] for eRx and Interaction Alerts* 06/07/2021 Active 24 HR niacin 1000 MG Extended Release Oral Tablet [Niaspan] ORAL 24 HR niacin 1000 MG Extended Release Oral Tablet [Niaspan]Original [id number] HR niacin 1000 MG Extended Release Oral Tablet [Niaspan] *Reorder from [facility] for eRx and Interaction Alerts* 09/01/2016 Active Aspirin 325 MG Oral Tablet ORAL aspirin 325 MG Oral TabletOriginal Medicationaspirin 325 MG Oral Tablet *Reorder from [facility] for eRx and Interaction Alerts* 05/30/2016 Active Ascorbic Acid 500 MG Oral Tablet ORAL ascorbic acid 500 MG Oral TabletOriginal Medicationascorbic acid 500 MG Oral Tablet *Reorder from [facility] for eRx and Interaction Alerts* 05/30/2016 Active vitamin E 90 MG Oral Capsule ORAL vitamin E 90 MG Oral CapsuleOriginal Medicationvitamin E 90 MG Oral Capsule *Reorder from [facility] for eRx and Interaction Alerts* 05/30/2016 Active diclofenac sodium 0.01 MG/MG Topical Gel [Voltaren] CUTANEOUS diclofenac sodium 0.01 MG/MG Topical Gel [Voltaren]Original Medicationdiclofenac sodium 0.01 MG/MG Topical Gel [Voltaren] *Reorder from [facility] for eRx and Interaction Alerts* 05/27/2016 Active Plan Of Treatment No Information Insurance Providers Payer Name Payer Address Payer Phone Subscriber Number Group Number Insured Name Patient Relationship to Insured Coverage Start Date Coverage End Date [facility] [address] [place], [place] [id number] ISAIAS DIAS Self - patient is the insured
--- OUTSIDE RECORDS SUMMARY | 2025-05-22 09:10 | XMS_ITS | Encounter Summary ---
Author Organization [facility] Address [address] [place] [address] Phone Care Team Providers Care Ultrasound Spec Name Role Phone Kamille Claudio MD Primary Care Provider [phone] Ismael Chamberlain MD Primary Care Provider [phone] Esau Sutton MD Unavailable [phone] Encounter Details Date Type Department Care Team (Late st Contact Info) Description 10/07/2015 Orders Only [facility] Provider, MD Linnea [address] [place] [address] Social History Tobacco Use Types Packs/Day Years Used Date Smoking Tobacco: Former Alcohol Use Standard Drinks/Week Comments Yes 0 (1 standard drink = 0.6 oz pur e alcohol) Comments Unknown Sex and Gender Information Value Date Recorded Sex Assigned at Not on file Legal Sex Female 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
--- OUTSIDE RECORDS SUMMARY | 2025-05-22 09:10 | XMS_ITS | Encounter Summary ---
Author Organization [facility] Address [address] [place] [address] Phone Care Team Providers Care Space Systems Operations Superintendent Name Role Phone Kamille Claudio MD Primary Care Provider [phone] Ismael Chamberlain MD Primary Care Provider Esau Sutton MD Unavailable Encounter Details Date Type Department Care Team (Late st Contact Info) Description 04/13/2016 Orders Only [facility]INCON[facility] ProviderLinnea MD [address] [place] [address] Social History Tobacco Use Types Packs/Day Years Used Date Smoking Tobacco: Former Alcohol Use Standard Drinks/Week Comments Yes 0 (1 standard drink = 0.6 oz pur e alcohol) Comments Unknown Sex and Gender Information Value Date Recorded Sex Assigned at Not on file Legal Sex Female 2:06 PM HAIR DRYER Gender Identity Female 02/22/2023 3:53 PM CDT [...] COVID: Suspected 11/01/2024 11/01/2024 11/01/2024 7:01 PM HAIR DRYER documented as of this encounter Care Teams Space Systems Operations Superintendent Relationship Specialty Start Date End Date Kamille Claudio MD [address] [place] [address] PCP - General 01/10/17 06/03/20 Ismael Chamberlain MD [address] [place] [address] PCP - General Internal Medicine 06/04/20 Esau Sutton MD [address], [place] [address] Surgeon Orthopedic Surgery 03/15/24 documented as of this encounter
--- OUTSIDE RECORDS SUMMARY | 2025-05-22 09:10 | XMS_ITS | Clinical Summary ---
Author Organization [facility] Address [address] [place] [address] Care Team Providers Care Facility Service Manager Name Role Phone Unavailable Primary Care Provider Unavailabl e Source Comments [facility],non-owned Affiliates and Associated Physician Practices is amultiple site organization consisting of ambulatory clinics and hospital sitesin [place], [place], [place] and [place]. This disclosure is being madepursuant to the Care Everywhere program and may not contain all information available regarding this patient. Last updated 18.[facility] Encounters Date Type Department Care Team Description 05/16/[address] 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 Gender Identity Not on file Sexual Orientation [...] 2001 ZOSTER VACCINE (1 of 2) 2001 DEPRESSION SCREENING 09/04/2024 COVID-19 VACCINE (2023-2 5 season) 2025 INFLUENZA VACCINE (#1) 2025 Respiratory Syncytial Virus [...] patient's age to complete this topic Insurance [facility] Address: [id number] [place] [address] SELF PAY NO INSURANCE Member Subscriber Plan / Payer (Ef fective for All Dates) Name:Isaias Amato Member ID:Not on file Relation to Subscriber:Not on file Name:ISAIAS AMATO Subscriber ID:Not on file (Home) Address: [address] [place] [address] Payer ID:Not on file Group ID:Not on file Type:Self Pay Address: [place], [place]
--- OUTSIDE RECORDS SUMMARY | 2025-05-22 09:10 | XMS_ITS | Encounter Summary ---
Author Organization [facility] Address [address] [place] [address] Phone Care Team Providers Care Instrument Assembly Supervisor Name Role Phone Kamille Claudio MD Primary Care Provider [phone] Ismael Chamberlain MD Primary Care Provider [phone] Esau Sutton MD Unavailable [phone] Encounter Details Date Type Department Care Team (Late st Contact Info) Description 06/19/2017 Orders Only [facility] Provider, MD Linnea [address] [place] [address] Social History Tobacco Use Types Packs/Day Years Used Date Smoking Tobacco: Former Alcohol Use Standard Drinks/Week Comments Yes 0 (1 standard drink = 0.6 oz pur e alcohol) Comments Unknown Sex and Gender Information Value Date Recorded Sex Assigned at Not on file Legal Sex Female 2:06 PM YARD MANAGER Gender Identity Female 02/22/2023 3:53 PM CDT [...] COVID: Suspected 11/01/2024 11/01/2024 11/01/2024 7:01 PM YARD MANAGER documented as of this encounter Care Teams Instrument Assembly Supervisor Relationship Specialty Start Date End Date Kamille Claudio MD [address] [place] [address] PCP - General 01/10/17 06/03/20 Ismael Chamberlain MD [address] [place] [address] PCP - General Internal Medicine 06/04/20 Esau Sutton MD [address], [place] [address] Surgeon Orthopedic Surgery 03/15/24 documented as of this encounter
--- OUTSIDE RECORDS SUMMARY | 2025-05-22 09:10 | XMS_ITS | Clinical Summary ---
Author Organization [facility] Office Building B Address [address] [place] [address] Care Team Providers Care Bilingual Student Tutor Name Role Phone Ismael Chamberlain MD Primary Care Provider [phone] Esau Sutton MD Unavailable Allergies Active Allergy Reactions Criticality Noted Date [...] MOUTH DAILY 30 tablet 11 4 Active sertraline (ZOLOFT) [...] daily 30 tablet 11 5 026 Active clobetasoL (TEMOVATE) 0.05 % creamIndicatio ns:Lichen sclerosus Apply nightly to area of irritation externally for 12 weeks, then 2 x per week. 30 g 1 5 Active rosuvastatin (CRESTOR) 40 mg tablet Take 1 tablet (40 mg total) by mouth daily 30 tablet 11 5 026 Active carvediloL (COREG) 25 mg tablet Take 1 tablet (25 mg total) by mouth 2 (two) times a day with meals 60 tablet 11 5 026 Active carvediloL (COREG) 12.5 mg tablet Take 1 tablet (12.5 mg total) by mouth 2 (two) times a day 60 tablet 11 5 025 Discontin ued(Thera py completed ) Active Problems Problem Noted Date Diagnosed Date Syncope and collapse 11/01/2024 Aftercare following left knee joint replacement surgery 05/08/2024 Hypotension due to drugs 03/16/2024 Assessment & Plan (03/16/2024 2:43 PM CDT): Hypotension 03/15 secondary to medication and possible dehydration. Improvement [...] (05/20/2022): Added automatically from request for surgery [id number] Encounter for screening colonoscopy 05/20/2022 Overview (05/20/2022): Added automatically from request for surgery [id number] Chronic systolic heart failure 05/19/2022 Assessment & [...] narrow QRS duration, not a candidate for SECURITY OPERATIONS ENGINEER On GDMT per hack driver Coronary artery disease invo lving north fork coronary artery of north fork heart 12/09/2021 Overview (12/09/2021): Added automatically from request for surgery [id number] Assessment & Plan (03/16/2024 8:22 AM CDT): [...] Encounters Date Type Department Care Team Description 05/01/2025 10:15 AM CDT Office Visit [facility] at [address] [place] [phone] Geraldo Bone MD Cardiomyopathy, ischemic (Primary Dx) 04/23/2025 Results Follow-Up [facility] [address] [place] [phone] Geraldo Bone MD Transthoracic Echo (TTE) Complete W Doppler/CF 04/17/2025 9:32 AM CDT - 04/17/2025 11:59 PM CDT Hospital Encounter [facility] [address] [place] [address] Cardiomyopathy, ischemic; Coronary artery disease involving north fork coronary artery of north fork heart without angina pectoris Discharge Disposition: Discharge to home or self care 03/24/[address] [facility] at [address] [phone] Gerlado Bone MD Coronary artery disease involving north fork coronary artery of north fork heart without angina pectoris (Primary Dx) 03/05/[address] [facility] at [address] [place] [phone] Geraldo Bone MD 03/03/2025 Orders Only [facility] [address] [facility] Building [address] [place] [address] Esteban Rodrigues MD PhD 02/28/2025 Telephone [facility] at [facility] [address] [facility] [address] [place] [address] Geraldo Bone MD 02/27/2025 [facility]phone [facility] [address] [facility] [address] [place] [address] Diane Xie RN Temavate Cream Refill from Last 3 Months Surgical History Surgery Date Site/Laterality Comments OTHER SURGICAL HISTORY ICD implant OTHER SURGICAL HISTORY lipoma removed TONSILLECTOMY Tonsillectomy COLONOSCOPY 06/04/2016 - 07/04/2016 CARDIAC DEFIBRILLATOR PLACEMENT 09/04/2016 - 09/03/2017 [employer] CORONARY ANGIOPLASTY WITH STENT PLACEMENT patient has a total of 3 stents Medical History Medical History Date Comments Hypertension Hypertension Anemia Anemia Hx Other Medical high cholestero l Hx Other Medical 2003 heart attack CAD (coronary artery disease), north fork coronary a rtery ICD (implantable cardioverter-defibrillator) in place VT (ventricular tachycardia) Chronic systolic heart failure (HCC) Cardiomyopathy Family History Medical History Relation Name Comments [...] on file Legal Sex Female 2:06 PM DRAGGER Gender Identity Female 02/22/2023 3:53 PM CDT Sexual Orientation Straight 07/08/2021 9: 32 AM CDT Obstetrics History Para Term AB IAB SAB Ectopic Multiple Livin g Live Births 0 0 0 0 0 0 0 0 0 0 0 Last Filed Vital Signs Vital Sign Reading Time Taken Comments Blood Pressure 156/93 05/01/2025 10:24 AM CDT Pulse 76 05/01/2025 10:24 AM CDT Temperature 36.6 C (97.8 F) 11/02/2024 2:45 PM DRAGGER Respiratory Rate 18 11/02/2024 2:45 PM DRAGGER Oxygen Saturation 99% 11/02/2024 2:45 PM DRAGGER Inhaled Oxygen Concentration - - Weight 76.2 kg (168 lb) 05/01/2025 10:24 AM CDT Height 160 cm (5' 3) 05/01/2025 10:24 AM CDT Body Mass Index 29.76 05/01/2025 10:24 AM CDT Plan of Treatment Health Maintenance Due Date Last Done Comments Osteoporosis Screening-Bone Density Scan 1950 DTaP/Tdap/Td Vaccine (1 - Tdap) 1962 Hepatitis B Screening 1969 Zoster Vaccine (1 of 2) 2001 Pneumococcal vaccine 65+ (2 of 2 - PPSV23, PCV20, or PCV21) 02/04/2019 12/10/2018 Influenza Vaccine (#1) 2025 Depression [...] 08/09/2016, 07/13/2011 Medical Devices Implanted Type Area Byproduct Engineer Device Identifier Shelf Expiration Date Model / Serial / Lot [employer] Phyliica Synergy 3.5mm 24mm 144cm Radiopaque 1 Access Port Inflation Lumen [id number] - [id number] Implanted:Qty: 1 on 12/28/2021 by Riki Rodriguez MD at [facility] [employer] Phylicia 06/08/2022 [id number] / / [id number] [employer] Phylicia Synergy 4mm 38mm 144cm Radiopaque 1 Access Port Inflation Lumen [id number] - [id number] Implanted:Qty: 1 on 12/28/2021 by Riki Rodriguez MD at [facility] [employer] Phylicia 12/01/2022 [id number] / / [id number] Angio-Seal Evolution 6fr Vascular Closure [id number] - [id number] Implanted:Qty: 1 on 12/28/2021 by Riki Rodriguez MD at [facility] [employer] Phylicia 08/03/2022 [id number] / / [id number] [employer] Attune Fb Tib Base Sz 6 Por [id number] - [id number] Implanted:Qty: 1 on 03/15/2024 by Esau Sutton MD at [facility] Left: Knee [employer] [id number] 02/01/2034 [id number] / / [id number] [employer] Component Femoral Knee Porous Posterior Stabilized Left Attune Size 5 [place] [employer] [id number] - [id number] Implanted:Qty: 1 on 03/15/2024 by Esau Sutton MD at [facility] Left: Knee [employer] [id number] 09/03/2033 [id number] / / [id number] [employer] Attune 38mm Cemented Medialize Knee Dome Patellar Aox Sterile [id number] - [id number] Implanted:Qty: 1 on 03/15/2024 by Esau Sutton MD at [facility] Left: Knee [employer] [id number] 10/04/2031 [id number] / / [id number] [employer] Cmw 2 Fast Set Cement 20gm Bone Sterile 3322-020 - [id number] Implanted:Qty: 1 on 03/15/2024 by Esau Sutton MD at [facility] Left: Knee [employer] [id number] 12/02/2025 3322-020 / / [id number] [employer] Attune 6mm Posterior Stabilize Fix Bearing Knee 5 Insert Tibial [id number] - [id number] Implanted:Qty: 1 on 03/15/2024 by Esau Sutton MD at [facility] Left: Knee [employer] [id number] 01/01/2029 [id number] / / [id number] Procedures Procedure Name Priority Date/Time Associated Diagnosis Comments TRANSTHORACIC ECHO (TTE) COMPLETE W DOPPLER/CF WO CONTRAST Routine 04/17/2025 10:40 AM CDT Cardiomyopathy, ischemic Coronary artery disease involving north fork coronary artery of north fork heart without angina pectoris DEVICE CHECK - REMOTE Routine 03/03/2025 7:38 AM CDT DIAGNOSTIC MAMMOGRAM BILATERAL W TREY Schedule Routine, Read Routine (OP Routine) 12/03/2024 2:38 PM CDT Abnormal mammogram of right breast COLONOSCOPY 07/21/2022 7:26 AM DRAGGER HEPATITIS C ANTIBODY Routine 03/03/2020 from Last 3 Months or Most Recently Relevant to Health Maintenance Results * TRANSTHORACIC ECHO (TTE) COMPLETE W DOPPLER/CF WO CONTRAST (04/17/2025 10:40 AM CDT) Estimated EF 20-25 % CONS SCIMAGE Anatomical Region Laterality Modality Ultrasound 04/17/2025 10:2 7 AM CDT Narrative 04/17/2025 3:24 PM CDT [address] [address] Echocardiogram Report Patient Name: NIMCO ELIZALDE : 1950 Study Date: 04/17/2025 10:27:17 AM Gender: F Tech: HAM DOCTOR Location: Echo Lab 2 Ref Provider: GERALDO BONE Height(Cm): 160 BSA: 1.82 Weight(Kg): 74.8 Quality: Adequate Order Provider: GERALDO BONE PROCEDURES: Echocardiographic Report: Transthoracic echocardiogram with complete 2D, M-Mode, and color Doppler examination. INDICATIONS: I25.5 Ischemic cardiomyopathy and I25.10 Atherosclerotic heart disease of north fork coronary artery without angina pectoris. MEASUREMENTS: 2D/MM Value Range Doppler Value Range Estimated EF 20-25 % TERESO Vmax 1.97 cm2 LA Dimension MM 3.18 cm [ 2.70 - 3.80 ] AV Mean PG 4 mmHg AoR Diam MM 2.98 cm [ 2.70 - 3.70 ] AV Peak Jean Paul 1.36 m/s [ 1.00 - 1.70 ] ACS MM 1.72 cm AV VTI 32.65 cm LVOT Diam 2.35 cm LVOT Peak Jean Paul 0.62 m/s [ 0.70 - 1.10 ] LVOT VTI 15.30 cm MV E Peak Jean Paul 0.61 m/s [ 0.60 - 1.30 ] MV A Peak Jean Paul 0.93 m/s [ 1.00 - 1.20 ] MV Mean PG 1 mmHg MV PHT 61 msec [ 20 - 100 ] MVA 3.60 MV Decel Time 188 msec [ 104 - 258 ] PV Peak Jean Paul 0.77 m/s [ 0.40 - 0.80 ] TR Peak Jean Paul 2.44 m/s [ 1.00 - 2.80 ] TR Peak PG 24 mmHg RVSP 27.00 mmHg [ 10.00 - 36.00 ] E` 0.02 m/s E/E` 25.76 [ <= 10.00 ] PA Pressure 27.00 mmHg [ 10.00 - 36.00 ] 2D/MM Value Range Doppler Value Range - FINDINGS: Atrial Septum: Normal atrial septum. Left Ventricle: Normal left ventricular size. Normal left ventricular wall thickness. Severe global left ventricular systolic dysfunction. Impaired diastolic relaxation Grade I. Ejection Fraction is estimated to be 20-25 %. Left Atrium: The left atrium is normal in size. Right Ventricle: Normal right ventricular size. Normal right ventricular systolic function. Linear artifact in right ventricle suggestive of catheter(s), pacemaker lead(s), or ICD lead(s). Right Atrium: The right atrium is normal in size. Linear artifact in right atrium suggestive of catheter(s), pacemaker lead(s), or ICD lead(s). Aortic Valve: No evidence of hemodynamically significant aortic stenosis by Doppler. Aortic cusps appear mildly sclerotic. Mitral Valve: Mitral valve leaflets appear mildly thickened. Mild mitral annular calcification. Trivial regurgitation of the mitral valve. Pulmonic Valve: Normal structure of the pulmonic valve. No evidence of pulmonic regurgitation. Tricuspid Valve: Normal structure of the tricuspid valve. Normal right ventricular systolic pressure. Trivial regurgitation in the tricuspid valve. Pericardium: Normal pericardium with no significant pericardial effusion. Aorta: There is mild atherosclerosis in the aortic root. IVC: Normal size and normal respiratory collapse consistent with normal right atrial pressure (<5 mmHg). The IVC is not well visualized. Pulmonary Artery: Pulmonary artery not well visualized. CONCLUSIONS: Normal left ventricular size. Normal left ventricular wall thickness. Severe global left ventricular systolic dysfunction. Impaired diastolic relaxation Grade I. Ejection Fraction is estimated to be 20-25 %. Anterior wall, mid to distal interventricular septum and apex are thinned and akinetic suggesting coronary artery disease. No apical thrombus noted within the limits of the study. Normal right ventricular size. Normal right ventricular systolic function. Linear artifact in right ventricle suggestive of catheter(s), pacemaker lead(s), or ICD lead(s). Mitral valve leaflets appear mildly thickened. Trivial regurgitation of the mitral valve. No evidence of hemodynamically significant aortic stenosis by Doppler. Aortic cusps appear mildly sclerotic. Normal structure of the tricuspid valve. Normal right ventricular systolic pressure. Trivial regurgitation in the tricuspid valve. Normal pericardium with no significant pericardial effusion. Technically difficult study with limited views and visualization. Valves in general are poorly visualized. Electronically Signed By: Ca Salgado MD 04/17/2025 3:24:06 PM CDT Procedure Note Ca Salgado MD - 04/17/2025 [place] [address] Echocardiogram Report Patient Name: NIMCO ELIZALDE : 1950 Study Date: 04/17/2025 10:27:17 AM Gender: F Tech: HAM DOCTOR Location: Echo Lab 2 Ref Provider: GERALDO BONE Height(Cm): 160 BSA: 1.82 Weight(Kg): 74.8 Quality: Adequate Order Provider: GERALDO BONE PROCEDURES: Echocardiographic Report: Transthoracic echocardiogram with complete 2D, M-Mode, and color Dopplerexamination. INDICATIONS: I25.5 Ischemic cardiomyopathy and I25.10 Atherosclerotic heart disease ofnative coronary artery without angina pectoris. MEASUREMENTS: 2D/MM Value Range Doppler ValueRange Estimated EF 20-25 % TERESO Vmax 1.97cm2 LA Dimension MM 3.18 cm [ 2.70 - 3.80 ] AV Mean PG 4 mmHg AoR Diam MM 2.98 cm [ 2.70 - 3.70 ] AV Peak Jean Paul 1.36 m/s[ 1.00 - 1.70 ] ACS MM 1.72 cm AV VTI 32.65cm LVOT Diam 2.35 cm LVOT Peak Jean Paul 0.62 m/s [ 0.70 - 1.10 ] LVOT VTI 15.30 cm MV E Peak Jean Paul 0.61 m/s [ 0.60 - 1.30 ] MV A Peak Jean Paul 0.93 m/s [ 1.00 - 1.20 ] MV Mean PG 1 mmHg MV PHT 61 msec [ 20 - 100 ] MVA 3.60 MV Decel Time 188 msec [ 104 - 258 ] PV Peak Jean Paul 0.77 m/s [ 0.40 - 0.80 ] TR Peak Jean Paul 2.44 m/s [ 1.00 - 2.80 ] TR Peak PG 24 mmHg RVSP 27.00 mmHg [ 10.00 - 36.00 ] E` 0.02 m/s E/E` 25.76 [ <= 10.00 ] PA Pressure 27.00 mmHg [ 10.00 - 36.00 ] 2D/MM Value Range Doppler ValueRange - FINDINGS: Atrial Septum: Normal atrial septum. Left Ventricle: Normal left ventricular size. Normal left ventricular wall thickness.Severe global left ventricular systolic dysfunction. Impaired diastolic relaxation Grade I.Ejection Fraction is estimated to be 20-25 %. Left Atrium: The left atrium is normal in size. Right Ventricle: Normal right ventricular size. Normal right ventricular systolic function.Linear artifact in right ventricle suggestive of catheter(s), pacemaker lead(s),or ICD lead(s). Right Atrium: The right atrium is normal in size. Linear artifact in right atriumsuggestive of catheter(s), pacemaker lead(s), or ICD lead(s). Aortic Valve: No evidence of hemodynamically significant aortic stenosis by Doppler.Aortic cusps appear mildly sclerotic. Mitral Valve: Mitral valve leaflets appear mildly thickened. Mild mitral annularcalcification. Trivial regurgitation of the mitral valve. Pulmonic Valve: Normal structure of the pulmonic valve. No evidence of pulmonicregurgitation. Tricuspid Valve: Normal structure of the tricuspid valve. Normal right ventricular systolicpressure. Trivial regurgitation in the tricuspid valve. Pericardium: Normal pericardium with no significant pericardial effusion. Aorta: There is mild atherosclerosis in the aortic root. IVC: Normal size and normal respiratory collapse consistent with normal rightatrial pressure (<5 mmHg). The IVC is not well visualized. Pulmonary Artery: Pulmonary artery not well visualized. CONCLUSIONS: Normal left ventricular size. Normal left ventricular wall thickness.Severe global left ventricular systolic dysfunction. Impaired diastolic relaxation Grade I.Ejection Fraction is estimated to be 20-25 %. Anterior wall, mid to distalinterventricular septum and apex are thinned and akinetic suggesting coronary artery disease. Noapical thrombus noted within the limits of the study. Normal right ventricular size. Normal right ventricular systolic function.Linear artifact in right ventricle suggestive of catheter(s), pacemaker lead(s),or ICD lead(s). Mitral valve leaflets appear mildly thickened. Trivial regurgitation ofthe mitral valve. No evidence of hemodynamically significant aortic stenosis by Doppler.Aortic cusps appear mildly sclerotic. Normal structure of the tricuspid valve. Normal right ventricular systolicpressure. Trivial regurgitation in the tricuspid valve. Normal pericardium with no significant pericardial effusion. Technically difficult study with limited views and visualization. Valvesin general are poorly visualized. Electronically Signed By: Ca Salgado MD 04/17/2025 3:24:06 PM CDT Geraldo Bone MD CV ECHO PROCEDURES [facility] al Result * DEVICE CHECK - REMOTE (03/03/2025 7:38 AM CDT) Anatomical Region Laterality Modality Other 03/03/2025 7:38 AM CDT Narrative 04/01/2025 8:37 PM CDT Interpretation Summary: Battery and Leads (BL) Normal parameters noted on battery and lead(s) --- 3.8 yrs remaining longevity (implanted 2016). Lead impedance and sensing trends stable and appropriate. No short V-V intervals. Capture threshold chronically elevated --- RV threshold 2.0/0.4. Trend shows chronically elevated measurements. RV output is programmed Adaptive, currently 4.25/0.4. Presenting Rhythm (VA) Ventricular Sensing (VS) --- VS (SB) 40s. Arrhythmic events (AE) No new arrhythmic events in monitoring period --- Since 12/03/24: No tachy episodes. Transmission Information (TI) Device Summary Report Follow Up (FU) Patient's primary treating physician will be apprised of findings Procedure Note Esteban Rodrigues MD PhD - 04/01/2025 Interpretation Summary: Battery and Leads (BL) Normal parameters noted on battery and lead(s) --- 3.8 yrs remaininglongevity (implanted 2016). Lead impedance and sensing trends stableand appropriate. No short V-V intervals. Capture threshold chronically elevated --- RV threshold 2.0/0.4. Trendshows chronically elevated measurements. RV output is programmedAdaptive, currently 4.25/0.4. Presenting Rhythm (VA) Ventricular Sensing (VS) --- VS (SB) 40s. Arrhythmic events (AE) No new arrhythmic events in monitoring period --- Since 12/03/24: No tachyepisodes. Transmission Information (TI) Device Summary Report Follow Up (FU) Patient's primary treating physician will be apprised of findings Esteban Rodrigues MD PhD CV CARDIAC SERVICES PROCEDURES Final Result * DIAGNOSTIC MAMMOGRAM BILATERAL W TREY (12/03/2024 [...] Final Result * COLONOSCOPY (07/21/2022 7:26 AM DRAGGER) Anatomical Region Laterality Modality Other Narrative Procedure Note Maxi Oscar MD - 07/21/2022 7:26 AM CST [facility] Patient Name: Nimco Elizalde Procedure Date: 07/21/2022 7:26 AM Date of : 1950 Admit Type: Outpatient Age: 72 Gender: Female Attending MD: Maxi Oscar M.D. Room: [facility] ENDOSCOPY ROOM 2 Note Status: Finalized [...] scope was passed under direct vision. TheColonoscope [id number] was introduced through the anus and advanced [...] history of colonic polyps CPT copyright 2020 [employer]. All rights reserved. The codes documented in this report are preliminary and upon rope twisting machine operator reviewmay be revised to meet current compliance requirements. Recognized by the [place] [employer] for promoting quality in endoscopy Maxi Oscar MD ENDOSCOPY PROCEDURES Final Re sult * Hepatitis C antibody (03/03/2020) Blood specimen (specimen) Historical Provider LAB MICROBIOLOGY - GENERA L ORDERABLES Final Result from Last 3 Months or Most Recently Relevant to Health Maintenance Insurance [facility] [id number] [facility] [id number] Advance Directives For more information, please contact: [phone] * Full Code (Latest Code Status on [...] 12:36 PM 12/29/2021 4:54 PM Care Teams Bilingual Student Tutor Relationship Specialty Start Date End Date Ismael Chamberlain MD PCP - General Internal Medicine 06/04/20 Esau Sutton MD [address] [place] [address] [place] [address] Surgeon Orthopedic Surgery 03/15/24
--- OUTSIDE RECORDS SUMMARY | 2025-05-22 09:10 | XMS_ITS | Encounter Summary ---
Author Organization [facility] Healthcare Address [address] [place] [address] Care Team Providers Care Information Tech Name Role Phone Ismael Chamberlain MD Primary Care Provider [phone] Esau Sutton MD Unavailable [phone] Encounter Details Date Type Department Care Team (Late st Contact Info) Description 04/23/2025 Results Follow-Up [place] Machine Captain [id number] [address] Geraldo Bone MD [address] [place] [address] [address] Transthoracic Echo (TTE) Complete W Doppler/CF Social History Tobacco Use Types Packs/Day Years [...] on file Legal Sex Female 2:06 PM DIRECTOR OF SUSTAINABLE DESIGN Gender Identity Female 02/22/2023 3:53 PM CDT Sexual Orientation Straight 07/08/2021 9: 32 AM CDT documented as of this encounter Plan of Treatment Not on file documented as of this encounter Visit Diagnoses Not on filedocumented in this encounter Care Teams Information Tech Relationship Specialty Start Date End Date Ismael Chamberlain MD PCP - General Internal Medicine 06/04/20 Esau Sutton MD [address] [facility] [place] [address] [place] [address] Surgeon Orthopedic Surgery 03/15/24 documented as of this encounter
[2025-05-22 09:50] LABS: Cholesterol 162 mg/dL (0-200); HDL Direct 66 mg/dL; Triglycerides 224 mg/dL (<150)
== END 2025-05-22 08:45 | disposition home or self-care (01) ==
LOC: CHSLAB 08:49
PROVIDERS: PCP Internal Medicine
DX: I25.10 Atherosclerotic heart disease of native coronary artery without angina pectoris (principal)
CPT/HCPCS: 36415; 80061